=== PATIENT | female | born 1960 | race Caucasian/White ===

== ENCOUNTER 2017-11-28 11:09 | Inpatient (IN) | payer BC ==
[~2017-11-28] VITALS: Ht 167.6 cm; Wt 187.3 kg
[2017-11-28 12:11] LABS: BASOPHIL % 0.2 % (0-2); PLATELET COUNT 336 x10^3mcL (130-400)
[2017-11-28 12:34] LABS: microscopic required? YES; urine erythrocyte TRACE (NEGATIVE)
[2017-11-28 12:45] LABS: CARBON DIOXIDE 29.6 mmol/L (21-32); CHLORIDE SERUM 104 mmol/L (98-107); GLUCOSE SERUM 102 mg/dL (74-106); POTASSIUM SERUM 3.9 mmol/L (3.5-5.1); SODIUM SERUM 141 mmol/L (136-145)
[2017-11-28 12:46] LABS: ALBUMIN 2.3 g/dL (3.4-5.0); ALKALINE PHOSPHATASE 64 U/L (46-116); ALT/SGPT 36 U/L (14-59); AST/SGOT 48 U/L (15-37); BILIRUBIN TOTAL 0.7 mg/dL (0.20-1.00); CALCIUM 8.6 mg/dL (8.5-10.1); CREATININE SERUM 0.8 mg/dL (0.6-1.0); GFR1 > 60 mL/min
[2017-11-28] MEDS ORDERED: METFORMIN HCL1000 MG PO (15:48)
[2017-11-28 16:05] LABS: AMPHETAMINE QUAL UR NONE DETECTED (NEG <=1000)
[2017-11-28 16:05] LABS: MAGNESIUM 1.9 mg/dL (1.8-2.4); PHOSPHOROUS 3.5 mg/dL (2.5-4.9)
[2017-11-28 16:07] LABS: CHOLESTEROL/HDL RATIO 5.7
[2017-11-28 16:26] VITALS: BP 113/63
[2017-11-28 16:30] VITALS: Ht 167.6 cm; Wt 187.3 kg
[2017-11-28 20:35] VITALS: BP 135/65
[2017-11-29 05:55] VITALS: BP 124/67
[2017-11-29 07:58] LABS: BASOPHIL % 0.3 % (0-2); PLATELET COUNT 298 x10^3mcL (130-400)
[2017-11-29 08:48] VITALS: BP 123/63
[2017-11-29 12:17] LABS: CALCIUM 8.2 mg/dL (8.5-10.1); CARBON DIOXIDE 30.8 mmol/L (21-32); CHLORIDE SERUM 107 mmol/L (98-107); CREATININE SERUM 0.7 mg/dL (0.6-1.0); GFR1 > 60 mL/min; GLUCOSE SERUM 98 mg/dL (74-106); SODIUM SERUM 146 mmol/L (136-145)
[2017-11-29 13:16] VITALS: BP 113/70
[2017-11-29 16:18] VITALS: BP 118/73
[2017-11-29 20:20] VITALS: BP 101/51
[2017-11-30 05:29] VITALS: BP 95/53
[2017-11-30 07:09] LABS: BASOPHIL % 0.3 % (0-2); PLATELET COUNT 300 x10^3mcL (130-400)
[2017-11-30 07:44] LABS: CARBON DIOXIDE 31.8 mmol/L (21-32); CHLORIDE SERUM 108 mmol/L (98-107); POTASSIUM SERUM 3.5 mmol/L (3.5-5.1); SODIUM SERUM 141 mmol/L (136-145)
[2017-11-30 07:45] LABS: CALCIUM 7.7 mg/dL (8.5-10.1); CREATININE SERUM 0.7 mg/dL (0.6-1.0); GFR1 > 60 mL/min; GLUCOSE SERUM 97 mg/dL (74-106)
[2017-11-30 08:59] VITALS: BP 116/63
[2017-11-30 13:15] VITALS: BP 132/77
[2017-11-30 18:32] VITALS: BP 124/64
[2017-11-30 21:02] VITALS: BP 105/52
[2017-12-01 04:44] VITALS: BP 117/69
[2017-12-01 08:01] LABS: CALCIUM 7.8 mg/dL (8.5-10.1); CARBON DIOXIDE 31.2 mmol/L (21-32); CHLORIDE SERUM 105 mmol/L (98-107); CREATININE SERUM 0.6 mg/dL (0.6-1.0); GFR1 > 60 mL/min; GLUCOSE SERUM 100 mg/dL (74-106); POTASSIUM SERUM 3.4 mmol/L (3.5-5.1); SODIUM SERUM 143 mmol/L (136-145)
[2017-12-01 08:15] LABS: BASOPHIL % 0.3 % (0-2); PLATELET COUNT 325 x10^3mcL (130-400); RED CELL DISTRIBUTION WIDTH 14.8 % (11.5-14.5)
[2017-12-01 09:24] VITALS: BP 132/71
[2017-12-01 16:15] VITALS: BP 129/74
[2017-12-01 21:40] VITALS: BP 110/56
[2017-12-02 06:19] VITALS: BP 109/58
[2017-12-02 07:19] LABS: BASOPHIL % 0.2 % (0-2); PLATELET COUNT 333 x10^3mcL (130-400)
[2017-12-02 07:24] LABS: RED CELL DISTRIBUTION WIDTH 15.4 % (11.5-14.5)
[2017-12-02 07:38] LABS: CARBON DIOXIDE 29.3 mmol/L (21-32); CHLORIDE SERUM 107 mmol/L (98-107); CREATININE SERUM 0.6 mg/dL (0.6-1.0); GFR1 > 60 mL/min; GLUCOSE SERUM 103 mg/dL (74-106); POTASSIUM SERUM 3.8 mmol/L (3.5-5.1); SODIUM SERUM 145 mmol/L (136-145)
[2017-12-02 08:43] VITALS: BP 111/63
[2017-12-02 17:34] VITALS: BP 102/56
[2017-12-02 20:41] VITALS: BP 115/59
[2017-12-03 05:57] VITALS: BP 118/73
[2017-12-03 08:39] VITALS: BP 128/66
[2017-12-03 17:10] VITALS: BP 120/69
[2017-12-03 20:43] VITALS: BP 110/62
[2017-12-04 05:57] VITALS: BP 103/56
[2017-12-04 08:31] VITALS: BP 115/66
[2017-12-04 16:10] VITALS: BP 100/62
[2017-12-04] MEDS ORDERED: VITC PO (18:45)
[2017-12-04] MEDS ORDERED: THERAGRAN-M1 TA4 PO (18:45)
[2017-12-04] MEDS ORDERED: LAC PO (18:46)
[2017-12-04] MEDS ORDERED: ZINC SULFATE220 MG PO (18:46)
[2017-12-04] MEDS ORDERED: LEVAQUIN750 MG PO (18:47)
[2017-12-04 22:01] VITALS: BP 122/67
== END 2017-12-04 23:35 | DRG 264 ==
LOC: ED 11:09 → DU 13:07 → MU 13:07 → DU 15:57 → MU 11-29 12:09
PROVIDERS: Emergency Medicine; Family Medicine; Surgery
PROC: 0JBM0ZZ Excision of Left Upper Leg Subcutaneous Tissue and Fascia, Open Approach (ICD-10-PCS; principal; 2017-11-30 16:00)
DX: E11.52 Type 2 diabetes mellitus with diabetic peripheral angiopathy with gangrene (principal); L89.893 Pressure ulcer of other site, stage 3; E43 Unspecified severe protein-calorie malnutrition; R53.2 Functional quadriplegia; I96 Gangrene, not elsewhere classified; L03.116 Cellulitis of left lower limb; N39.0 Urinary tract infection, site not specified; L97.528 Non-pressure chronic ulcer of other part of left foot with other specified severity; F23 Brief psychotic disorder; Z68.44 Body mass index [BMI] 60.0-69.9, adult; F41.1 Generalized anxiety disorder; E86.0 Dehydration; E66.01 Morbid (severe) obesity due to excess calories; F40.00 Agoraphobia, unspecified; I89.0 Lymphedema, not elsewhere classified; E11.65 Type 2 diabetes mellitus with hyperglycemia; I87.8 Other specified disorders of veins; R23.8 Other skin changes; E28.2 Polycystic ovarian syndrome; E11.621 Type 2 diabetes mellitus with foot ulcer; L97.519 Non-pressure chronic ulcer of other part of right foot with unspecified severity; D64.9 Anemia, unspecified; L89.151 Pressure ulcer of sacral region, stage 1; F42.3 Hoarding disorder; Z79.84 Long term (current) use of oral hypoglycemic drugs; Z88.2 Allergy status to sulfonamides; Z86.718 Personal history of other venous thrombosis and embolism
CPT/HCPCS: 82962; 94150; 97110-GP; 97116-GP; 97530-GP; 97535-GP; J0696; J1644; J1956; J2175; J2250; J2704; J3010; J3490; J7030; Q0092

== ENCOUNTER 2019-07-05 08:06 | Inpatient (IN) | payer BC ==
[~2019-07-05] VITALS: Ht 167.6 cm; Wt 165.1 kg
[~2019-07-05 08:06] MED LIST: LAC PO; LEVAQUIN750 MG PO; METFORMIN HCL1000 MG PO; THERAGRAN-M1 TA4 PO; VITC PO; ZINC SULFATE220 MG PO
[2019-07-05 08:29] VITALS: Ht 167.6 cm; Wt 165.1 kg
--- NOTE | 2019-07-05 09:54 | NUR ---
PATIENT ASSISTED WITH PERICARE. MODERATE AMOUNT OF DRIED FECES NOTED ON BODY SECONDARY TO INABILITY TO GET UP FROM FLOOR. PER EMS, PATIENT SLEEPS ON COUCH DUE TO EXCESSIVE HOARDING IN HOME. REPORTS HOME IN SEVERE DISARRAY.
[2019-07-05 10:13] LABS: CALCIUM 8.6 mg/dL (8.5-10.1); CARBON DIOXIDE 26.3 mmol/L (21-32); CHLORIDE SERUM 104 mmol/L (98-107); CREATININE SERUM 0.7 mg/dL (0.6-1.0); GFR1 > 60 mL/min; GLUCOSE SERUM 109 mg/dL (74-106); SODIUM SERUM 139 mmol/L (136-145)
[2019-07-05 10:14] LABS: BASOPHIL % 0.6 % (0-2); PLATELET COUNT 329 x10^3mcL (130-400)
[2019-07-05 10:17] LABS: RED CELL DISTRIBUTION WIDTH 14.9 % (11.5-14.5)
[2019-07-05 10:18] LABS: ALKALINE PHOSPHATASE 70 U/L (46-116); ALT/SGPT 27 U/L (14-59); AST/SGOT 40 U/L (15-37); BILIRUBIN TOTAL 0.51 mg/dL (0.20-1.00); TOTAL PROTEIN, SERUM 7.9 g/dL (6.4-8.2)
[2019-07-05 10:25] LABS: ALBUMIN 2.7 g/dL (3.4-5.0)
[2019-07-05 10:26] LABS: POTASSIUM SERUM 4.3 mmol/L (3.5-5.1)
--- NOTE | 2019-07-05 11:59 | NUR ---
ADMITTING MD AT BEDSIDE WITH EVALUATION AND ADMIT ORDERS. WILL ORDER WOUND CONSULT UPON ADMISSION TO FLOOR.
[2019-07-05 12:15] LABS: microscopic required? YES; urine erythrocyte TRACE (NEGATIVE)
[2019-07-05 12:33] LABS: MAGNESIUM 2.1 mg/dL (1.8-2.4); PHOSPHOROUS 3.6 mg/dL (2.5-4.9)
[2019-07-05 12:38] LABS: AMPHETAMINE QUAL UR NONE DETECTED (See below)
[2019-07-05 13:41] VITALS: BP 108/59
--- NOTE | 2019-07-05 14:59 | NUR ---
RECEIVED PT FROM ER, PT ADMIT FOR GENERALIZED WEAKNESS, CELLULITIS, PT IS A/O X4, VERBAL RESPONSIVE. LUNG SOUND CLEAR BILATERAL, NO COUGH, NO SOB. PT DENY CHEST PAIN DISCOMFORT, BOWEL SOUND PRESENT ALL 4 QUADRANTS, NO DISTENTION, NO TENDER. BLE LYMPHEDEMA. DISCOLORATION AT BEATRICE LEG. THERE IS MULTIPLE SKIN TEAR AT RIGHT THIGH. THERE ARE ERYTHEMA UNDER BEATRICE BREAST AND ABD FOLD. IV AT LEFT AC, NO LEAKING, NO INFILTRATION. ALL ADLS ASSIST, ALL NEED MET, CALL LIGHT IN REACH, WILL CONTINUE TO MONITOR.
[2019-07-05 16:32] VITALS: BP 100/48
--- NOTE | 2019-07-05 17:30 | NUR ---
IV ABX GIVEN, INFUSING TO LAC. PATIENT C/O PAIN 10/05 TO BLE, PATIENT STATES PAIN IS TOLERABLE, INCREASES WITH MOVEMENT. NO ACUTE DISTRESS NOTED, PATIENT DENIES SOB, ON ROOM AIR. CARDENAS CATH DRAINING TO GRAVITY. ALL NEEDS METS AT THIS TIME. CALL LIGHT WITHIN REACH, WILL CONITNUE TO MONITOR.
--- NOTE | 2019-07-05 18:25 | NUR ---
PROVIDED WOUND CARE TO BILATERAL LOWER EXTREMITIES, CLEANSE WITH NS AND APPLIED DRIED DRESSING. INTERDRY APPLIED ON ABDOMINAL AND BREAST FOLDS. NO ACUTE CHANGES NOTED THOUGHOUT SHIFT, PATIENT IS STABLE. CALL LIGHT WITHIN REACH, BED IN LOW POSITION. WILL ENDORSE REPORT TO NIGHT RN.
--- NOTE | 2019-07-05 19:30 | NUR ---
PT IS A/O X4. MED SURG. DENIES ANY CHEST PAIN OR PRESSURE. PULSES ARE PRESENT. EDEMA NOTED ON BLE. LUNGS CLEAR IN ALL DAILEY. ON RA, DENIES ANY RESP DISTRESS. EQUAL CHEST RISE AND FALL. NO SIGN OF RESP DISTRESS. BOWEL SOUNDS ARE PRESENT X4. ABD SOFT AND OBESED. CARDENAS BAG IN PLACE, DRAINING VIA GRAVITY. BAG BELOW THE BLADDER. NO DEPENDENT LOOP OR KINK NOTED IN TUBING. R THIGH HAS MULTILPE, SUPERFICIAL SKIN TEARS, DRESSING INTACT AND CLEAN. BLE SKIN DISCOLORATION NOTED. ERYTHEMIC SKIN NOTED ON ABD FOLDS AND UNDER BREAST, INTRA-DRY IN PLACE. DENIES ANY PAIN AT THIS TIME. IV ON LAC INTACT AND PATENT. BED IS AT LOWEST SETTING. CALL LIGHT WITHIN REACH. WILL CONTINUE TO MONTIOR PT.
[2019-07-05 21:11] VITALS: BP 124/58
--- NOTE | 2019-07-05 23:23 | NUR ---
REPORT GIVEN TO REGI FLOR. ENDORSED ALL CARE.
--- NOTE | 2019-07-05 23:45 | NUR ---
EYS CLOSED, NO FACIAL GRIMACING NOTED. RESPIRATIONE FRITZ AND UNLABORED. NO S/S OF ACUTE DSITRESS.
--- NOTE | 2019-07-06 05:33 | NUR ---
CONTINUES ON ATB IVPB FOR EMPIRIC MANAGEMETN OF CELLULITIS , NO ADVERSE REACTION NOTED. BED IN LOWEST POSITION FOR SAFETY.
[2019-07-06 05:59] VITALS: BP 95/45
[2019-07-06 06:21] LABS: BASOPHIL % 0.6 % (0-2); PLATELET COUNT 296 x10^3mcL (130-400)
[2019-07-06 06:29] LABS: RED CELL DISTRIBUTION WIDTH 15.1 % (11.5-14.5)
[2019-07-06 06:39] LABS: CALCIUM 8.4 mg/dL (8.5-10.1); CARBON DIOXIDE 25.9 mmol/L (21-32); CHLORIDE SERUM 109 mmol/L (98-107); CREATININE SERUM 0.7 mg/dL (0.6-1.0); GFR1 > 60 mL/min; GLUCOSE SERUM 95 mg/dL (74-106); SODIUM SERUM 142 mmol/L (136-145)
--- NOTE | 2019-07-06 07:58 | NUR ---
REPORT TAKEN FROM LEADERSHIP DEVELOPMENT INSTRUCTOR NURSE AT THE BEDSIDE, PATIENT ALERT AND ORIENTED X 4 DURING REPORT, ABLE TO MAKE NEEDS KNOWN, IV TO LEFT AC WITH NS RUNNING AT 100ML/H. PATIENT DENIED ACUTE PAIN A THIS TIME, WILL CONTINUE TO MONITOR
[2019-07-06 08:43] VITALS: BP 116/41
[2019-07-06 12:32] VITALS: BP 125/49
[2019-07-06 17:02] VITALS: BP 111/59
--- NOTE | 2019-07-06 19:05 | NUR ---
CARE ASSUMED FROM OUTGOING RN. PT RESTING COMFORTABLY IN BED. NO ACUTE DISTRESS NOTED. EVEN AND UNLABORED RESPIRATIONS ON RA. MEDSURG PT. IV PATENT AND INTACT RUNNING FLUIDS PER EMAR. CARDENAS PATENT DRAINING YELLOW URINE VIA GRAVITY. NO C/O PAIN AT THIS TIME. BED IN LOWEST POSITION. SIDE RAILS UPX2. CALL LIGHT WITHIN REACH. WILL CONTINUE TO MONITOR.
[2019-07-06 21:08] VITALS: BP 98/48
[2019-07-06 21:35] VITALS: BP 100/49
--- NOTE | 2019-07-07 00:45 | NUR ---
PT RESTING COMFORTABLY IN BED WITH EYES CLOSED. NO ACUTE DISTRESS NOTED. EVEN AND UNLABORED RESPIRATIONS ON RA. IV PATENT AND INTACT RUNNING FLUIDS PER EMAR. CARDENAS DRAINING YELLOW URINE VIA GRAVITY. BED IN LOWEST POSITION. SIDE RAILS UPX2. CALL LIGHT WITHIN REACH. WILL CONTINUE TO MONITOR.
[2019-07-07 04:23] VITALS: BP 129/55
--- NOTE | 2019-07-07 05:59 | NUR ---
C/O PAIN TO IV SITE, REDNESS NOTED. DC'ED IV, CATHETER INTACT, PRESSURE APPLIED, NO EXCESS BLEEDING NOTED. NEW IV STARTED TO RIGHT HAND, GOOD BLOOD RETURN, FLUSHING WELL, RUNNING ANTIBIOTICS AND FLUIDS. PT TOLERATED WELL. NO ACUTE DISTRESS NOTED. BED IN LOWEST POSITION. SIDE RAILS UPX2. CALL LIGHT WITHIN REACH. WILL CONTINUE TO MONITOR.
--- NOTE | 2019-07-07 06:54 | NUR ---
PT SLEPT IN INTERVALS THROUGHOUT THE SHIFT. ALL NEEDS TENDED TO AND MET. ALL SCHEDULED MEDICATIONS GIVEN. OPTIFOAM REPLACED TO RIGHT POSTERIOR THIGH, CDI. INTERDRY APPLIED BENEATH BREASTS AND ABD FOLDS. PT CLEANED, GOWN AND LINEN CHANGED. PT TOLERATED WELL. CARDENAS PATENT. BED IN LOWEST POSITION. SIDE RAILS UPX2. CALL LIGHT WITHIN REACH. WILL ENDORSE TO ONCOMING SHIFT.
--- NOTE | 2019-07-07 07:05 | NUR ---
RECEIVED PT FROM NIGHT NURSE. PT IS SITTING UP IN BED. PT LOOKS TO BE IN NO ACUTE DISTRESS AT THIS TIME AND DENIES ANY PAIN. RESPIRATIONS EVEN AND UNLABORED ON ROOM AIR. IV SITE PATENT WITH NO SIGNS OF ERYTHEMA OR SWELLING. CARDENAS CATHETER PRESENT. SWELLING NOTED TO BLE. CALL LIGHT WITHIN REACH. WILL CONTINUE TO MONITOR.
--- NOTE | 2019-07-07 08:45 | NUR ---
WOUND CARE NURSE NIKITA AT BEDSIDE. PT LOOKS TO BE IN NO ACUTE DISTRESS AT THIS TIME. NEW DRESSINGS TO RIGHT BUTTOCK AND LEFT UPPER THIGH IS CDI. DRYNESS AND SWELLING NOTED TO BLE. WILL CONTINUE TO MONITOR.
[2019-07-07 09:45] VITALS: BP 115/50
--- NOTE | 2019-07-07 11:50 | NUR ---
PT IS LAYING DOWN IN BED RESTING WITH EYES CLOSED. PT EASILY AROUSABLE. ASSISTED PT TO TURN AND REPOSITION. PT IS NOW SITTING UP IN BED WATCHING TV. MADE PT COMFORTABLE IN BED. CALL LIGHT WITHIN REACH. WILL CONITNUE TO MONITOR.
--- NOTE | 2019-07-07 12:17 | NUR ---
WOUND CARE EVALUATION NOTE: REASON FOR EVALUATION: MULTIPLE WOUNDS SKIN ASSESSMENT DONE WITH PRIMARY RN WITH THIS 59 Y/O FEMALE PT ADMITTED FROM HOME TO [facility] WITH INITIAL DX OF GENERAL WEAKNESS. PAST MEDICAL HX INCLUDES LLE DVT. BLE LYMPHODEMA, DM II, MORBID OBESITY AND PCOS. PT IS AWAKE, ALERT X4. PER PT. SHE SIT AND SLEEP IN HER CHAIR, ABLE TO AMBULATE TO BR WITH FWW AT HOME. SKIN IS WARM AND DRY, BLE NO HAIR GROWTH, DORSAL PEDAL PULSES DIFFICULT TO PALPATE DUE TO +2 EDEMA, CAPILLARY REFILLED < 3 SEC. X [address]ES[address] F/C IN [address]ACE, CLOUDY COLOR WITH MODERATE AMOUNT URINE OUTPUT OBSERVED. PLAN OF CARE DISCUSSED WITH PRIMARY RN AND PT. AND PT VERBALIZES UNDERSTANDING. INTEGUMENTARY: -INTERTRIGO R/L UNDER BREAST FOLDS AND LOWER ABDOMENAL FOLDS,REDNES,INTACT -MOISTURE ASSOCIATE DERMATITIS (MAD) TO: B/L GROINS EXTENDED TO R/L MEDIAL THIGHS, REDNESS, SKIN INTACT. -MAD SKIN EROSIONS RIGHT POSTERIOR THIGH WITH MULTIPLE PARTIAL THICKNESS SKIN EROSIONS WITH LARGEST SIZE AT RIGHT ISCHIUM [id number] CM, WOUND BED IS PINK, SURROUNDING REDNESS DIFUSSED TO ENTIRE RIGHT INNER THIGHS, WOUND BED 100% GRANULATION TISSUE, MOIST AND NO ODOR. MIGUEL WOUIND SKIN INTACT. -IAD TO PERINEUM TO PERIANAL REDNESS, SKIN INTACT. -OLD HEALED SCARS FROM POSTERIOR LEFT THIGH DIFUSSED TO LEFT LOWER BUTTOCK. -BILATERAL LOWER LEGS CHRONIC LYMPHODEMA WITH ELEPHANTIASIS MULTIPLE HEALED ULCERATIONS SCARS XEROSIS WITH DRY PEELING SCALLY SKIN TO ENTIRE LEGS TO FEET. -THIN CALLUS TO HEELS, SKIN INTACT. RECOMMENDATIONS: -CLEANSE RIGHT POSTERIOR THIGH WITH WOUND CARE SOLUTION, PAT DRY, APPLY HYDROCOLLOIDS DRESSING AND SECURE WITH ISLAND DRESSING 3X WEEK ON SATURDAY-SATURDAY AND SATURDAY AND PRN IF SOILING -COVER LEFT MEDIAL THIGH SKIN TAG WITH OPTIFOAM CHANGE Q5 DAYS AND PRN IF SOILING -APPLY HYDRAGUARD TO BLE/FEET 3X A DAY -APPLY INTER DRY CLOTH TO UNDER BREASTS FOLDS AND LOAWER ABDOMENAL FOLDS QD AND CHANGE CLOTH Q7 DAYS AND PRN IF SOILING. -CLEANSE GROINS, MEDIAL THIGHS, PERINENM AND PERIANAL WITH SOAP AND WATER, PAT DRY AND APPLY HYDRAGUARD, BID AND PRN IF SOILING. -APPLY OPTIFORM TO L POSTERIOR THIGH AND CHANGE Q5D AND PRN IF DISLOGGED -OFFLOAD BILATERAL HEELS BY PLACING PILLOWS UNDER CALVES UNLESS OTHERWISE CONTRAINDICATED -PRESSURE REDISTUBUTION SURFACE THERAPY -TURN AND REPOSITION Q2H, OFFLOAD SACRALCOCCYX BY TURNING RIGHT AND LEFT -MONITOR SKIN CONDITION EACH TIME PT IS REPOSITIONS -CONTINUE TO FOLLOW UP OUT PATIENT VASCULAR FOR LYMPHEDEMA BILATERAL LOWER EXTREMITIES -HOME HEALTH OR SNF FOR CONTINUE WOUND CARE UPON DISCHARGE -CONTINUE TO FOLLOW RD RECOMMENDATIONS PLEASE CONTACT WOUND CARE NURSE FOR ANY QUESTION AND CHANGE OF WOUND CONDITION.
--- NOTE | 2019-07-07 14:13 | NUR ---
PT IS LAYING DOWN IN BED WATCHING TV. PT LOOKS TO BE IN NO ACUTE DISTRESS AT THIS TIME AND DENIES ANY PAIN. RESPIRATIONS EVEN AND UNLABORED ON ROOM AIR. ASSISTED PT TO TURN AND REPOSITION AND MADE PT COMFORTABLE IN BED. CALL LIGHT WITHIN REACH. WILL CONTINUE TO MONITOR.
--- NOTE | 2019-07-07 17:00 | NUR ---
PT IS SITTING UP IN BED WITH HOB UP. PT LOOKS TO BE IN NO ACUTE DISTRESS AT THIS TIME AND DENIES ANY PAIN. ASSISTED PT TO REPOSITION. RESPIRATIONS EVEN AND UNLABORED ON ROOM AIR. SWELLING NOTED TO BLE. MADE PT COMFORTABLE IN BED. WILL CONTINUE TO MONITOR.
[2019-07-07 17:09] VITALS: BP 113/58
--- NOTE | 2019-07-07 18:46 | NUR ---
ASSISTED PT FROM BED TO BSC WITH FWW. PT SLOWLY ABLE TO GET TO BSC WITH ASSISTANCE. PT HAD A BOWEL MOVEMENT. CLEANED UP PT AND ASSISTED BACK TO THE BED. PHYSICAL THERAPY NOW AT BEDSIDE WORKING WITH PT. PT LOOKS TO BE IN NO ACUTE DISTRESS AT THIS TIME. RESPIRATIONS EVEN AND UNLABORED ON ROOM AIR. IV SITE PATENT WITH NO SIGNS OF ERYTHEMA OR SWELLING WITH IV FLUIDS INFUSING. CALL LIGHT WITHIN REACH. WILL ENDORSE TO ONCOMING SHIFT.
--- NOTE | 2019-07-07 19:25 | NUR ---
REC'D REPORT FROM RUDY DELUNA TO ASSUME CARE. PT A/0 X4, SPEECH CLEAR AND APPRORPRIATE. EENT FREE OF DISCHARGE. RESPS E/U ON ROOM AIR. CHEST RISE EQUAL AND SYMMETRICAL. DENIES ANY CP, SYNCOPE, OR DIZZINESS. PULSES PALPABLE X4. CAP REFILL < 3 SECS. BLE NON-PITTING LYMPHEDEMA NOTED. IV TO RHAND G22 INTACT AND PATENT. IVF NS INFUSING @ 100 ML/HR. GEN WEAKNESS NOTED. PT OBESE, REQUIRES ASSISTANCE FOR BED MOBILITY. TURNED AND REPOSITIONED Q2H FOR PRESSURE RELIEF. ABD OBESE, SOFT, NONTENDER TO TOUCH. BOWEL SOUNDS ACTIVE. DENIES ANY N/V/D. F/C INTACT AND PATENT, DRAINING VIA GRAVITY YELLOW URINE. CALM ADAM COOPERATIVE. ALL NEEDS MET AT THIS TIME. ENCOURAGED TO CALL FOR ANY ASSISTANCE WITH CALL LIGHT. CALL LIGHT WITHIN REACH. WILL CONTINUE TO MONITOR.
[2019-07-07 19:46] VITALS: BP 106/40
--- NOTE | 2019-07-07 22:30 | NUR ---
PT SEEN SITTING UP IN BED WATCHING TV. DENIES ANY PAIN OR DISCOMFORT. WILL CONTINUE TO MONITOR.
--- NOTE | 2019-07-08 00:53 | NUR ---
PT SEEN AWAKE LYING IN BED WATCHING TV. NO SIGNS OF DISTRESS NOTED. DENIES ANY PAIN OR DISCOMFORT.
[2019-07-08 05:26] VITALS: BP 120/61
[2019-07-08 06:31] LABS: CALCIUM 8.3 mg/dL (8.5-10.1); CARBON DIOXIDE 29.4 mmol/L (21-32); CHLORIDE SERUM 106 mmol/L (98-107); CREATININE SERUM 0.7 mg/dL (0.6-1.0); GFR1 > 60 mL/min; GLUCOSE SERUM 97 mg/dL (74-106); POTASSIUM SERUM 5.1 mmol/L (3.5-5.1); SODIUM SERUM 142 mmol/L (136-145)
[2019-07-08 06:45] LABS: BASOPHIL % 0.4 % (0-2); PLATELET COUNT 335 x10^3mcL (130-400); RED CELL DISTRIBUTION WIDTH 15.1 % (11.5-14.5)
--- NOTE | 2019-07-08 07:00 | NUR ---
RECEIVED REPORT FROM DEYSI DELUNA AT BEDSIDE, PT RESTING IN BED IN NO ACUTE DISTRESS
[2019-07-08 08:38] VITALS: BP 124/64
--- NOTE | 2019-07-08 09:10 | NUR ---
AM MEDs GIVEN PER MD ORDER VIA EMAR, TOLERATED WELL, NO ASE NOTED AT THIS ITME, EDUCATED PT R/T MED, ASE AND MONITOR, VERBALLY UNDERSTANDING, ALL NEEDS ADDRESSED AT THIS TIME, SAFETY PROTOCOL FOLLOWED, CONTINUE TO MONITOR
--- NOTE | 2019-07-08 09:29 | NUR ---
PT RESTING IN BED, IN NO ACUTE DISTRESS, VERBAL, ABLE TO MAKE NEEDS KNOWN, NO FACIAL DROOP/SLURRED SPEECH, RESP EVEN, RA, MEDSURYesi, SEE SHIFT ASSESSMENT, DENIED PAIN/DISCOMFORT, DENIED CP/PALPITATION, DENIED SOB/COUGH, IV PATENT AND FLUSING WELL, DRESING, CDI, ALL NEEDS ADDRESSED AT THIS TIME, SAFETY PROTOCOL FOLLOWED, CONTINUE TO MONITOR
--- NOTE | 2019-07-08 09:58 | NUR ---
SEEN BY ROBINA ARRIOLAO, QUESTIONS ASKED AND ANSWERED, NO FUIRTHER CONCERN NEEDE WHEN ASKED, ALL NEEDS ADDRESSED AT THIS TIME, SAFETY PROTOCOL FOLLOWED, CONTINUE TO MONITOR
[2019-07-08 11:03] VITALS: BP 124/64
--- NOTE | 2019-07-08 13:52 | NUR ---
1. [facility].
--- NOTE | 2019-07-08 13:52 | NUR ---
Initial Nutrition Assessment: 239/B [facility] [place] HR Dx: general weakness PMHx: PCOS, DVT in 1997 PSHx: Other (IVC filter placed in 1997), I&D done on Lt buttock and thigh in 2017 Labs: ALB 2.7L, CA 8.3L, AST 40H, HGB 10.7L Meds: Colace, lactinex, norco, NS, theragran-M, vitamin C, zinc, Zofran, zosyn Diet: [facility] PO intake since admission: (07/07) dinner 90%, lunch 80%, breakfast 100% Ht: 167.64 cm (66") Wt: 165 kg (363#) BMI: 58.8 kg/m2 Bed scale: 165 kg IBW: 142# (65 kg) %IBW: 255 UBW: 363# Age: 59/F Food Allergies: NKFA Skin: multiple skin tear at R posterior site, BEATRICE leg discoloration, BEATRICE breast folds erythema, [place]: 15 Edema: BLE lympedema GI: Last BM: 07/07 Trigger: unintentional wt loss, poor PO >3d Per H&P, Pt is a 59 yoF with PMH of PCOS and a DVT in 1997, s/p coumadin for 6 months and IVC filter, who came with cc of generalized weakness in the last [address] Note (07/08): Patient was alert and oriented and said that she ate almost all of her breakfast this morning and has good appetite. Patient was also very receptive to diet education. Problem with: N/V/D/C: none Problems with: Chewing: Swallowing: none Current appetite: good Recent wt change: none %wt change: n/a Vitamin/Supplement use: over 50, vitamin D, magnesium, zinc, fish oil Special diet at home: Regular, avoids sugary foods Physical activity: sedentary d/t physical condition Nutrition education given: Diet education and counseling about healthy eating, portion control and label reading was provided. Food-drug interactions: none Education given: n/a Estimated Nutritional Needs Based on adjusted body weight (90 kg) Energy: 9475-7509 kcal/day (25-30 kcal/kg for maintenance) Protein: 90-108 g/day (1.0-1.2 g/kg for maintenance) Fluid: 4154-6181 mL/day (1 mL/kcal) Nutrition Diagnosis: 1. Morbid obesity related to increased PO and limited physical activity as evidenced by BMI 58.8 kg/m2 Intervention 1. Recommend continuing [facility] diet at this time. Monitor/Evaluate Goal: PO intake at least 75% of estimated needs Monitor: PO intake, Labs, GI function F/U in 7 days as low risk 07/15
--- NOTE | 2019-07-08 16:16 | NUR ---
WOUND DRESSING CHANGED, PICs TAKEN AND KEPT IN CHART, PT RESTING IN BED IN NO ACUTE DISRESS, SKIN C/D/W, ALL NEEDS ADDRESSED, SAFETY PROTOCOL FOLLOWED, CONTINUE TO MONITOR
[2019-07-08 16:54] VITALS: BP 118/72
--- NOTE | 2019-07-08 17:25 | NUR ---
PT RESTING IN BED, IN NO ACUTE DISTRESS, IV PATENT AND INFUSING WELL. BM X 1, SKIN C/D/W, DRESSING CDI, DENIED CP/PALPITATION, DENIED PAIN/DISCOMFORT, NO SOB/COUGH, ALL NEEDS ADDRESSED AT THIS TIME, SAFETY PROTOCOL FOLLOWED, COMFORT PROVIDED, WILL ENDORSE TO ONCOMING RN
--- NOTE | 2019-07-08 19:30 | NUR ---
Received pt. from day shift, currently resting in bed asleep, but easily arousable with verbal stimuli. Pt. has no c/o of SOB, chest pain, pain, n/v or h/a, or s/o distress. Pt. safety in check with call light placed within, educated pt. on when and how to use call light system, bed set at lowest position, will continue to monitor pt. at this time.
[2019-07-08 20:45] VITALS: BP 124/60
--- NOTE | 2019-07-09 00:16 | NUR ---
IV SITE ON THE RIGHT HAND WAS NOT INFUSING, NEW IV SITE 20 G ON R AC, INFUSING WELL AT THIS TIME.
--- NOTE | 2019-07-09 05:44 | NUR ---
Pt. dressing on lower back region was changed d/t being soiled. Pt. toleraeted procedure well, dressing applied as wound care ordered. Will continue to monitor pt. at this time.
[2019-07-09 06:10] VITALS: BP 123/70
--- NOTE | 2019-07-09 06:52 | NUR ---
Pt. asleep for most of the night, was able to do a dressing change d/t dressing being soiled of fecal matter. Dressing changed and pt. tolerated it well. Pt. had no c/o of chest pain, pain, h/a, or s/o distress at this time. Will continue to monitor pt. at this time and endorse to next shift RN.
--- NOTE | 2019-07-09 07:10 | NUR ---
RECIEVED PT RESTING BED WITH NO C/O PAIN OR DISTRESS. A/O X4 WITH NO URBINA OR DIZZINESS. LUNGS CTAB. CARDENAS CATHETER IN PLACE AND DRAINING YELLOW URINE. NS 100ML/HR RUNNING IN RAC, CDI AND PATENT. SAFETY PRECAUTIONS IN PLACE, CALL LIGHT WITHIN REACH, WILL MONITOR.
[2019-07-09 09:12] VITALS: BP 134/61
--- NOTE | 2019-07-09 11:00 | NUR ---
PT STABLE WITH NO C/O PAIN OR DISTRESS. SAFETY PRECAUTIONS IN PLACE, CALL LIGHT WITHIN REACH, WILL CONTINUE TO MONITOR.
[2019-07-09 13:43] VITALS: BP 134/61
--- NOTE | 2019-07-09 14:34 | NUR ---
PHYSICAL THERAPY DAILY NOTES CO-SIGN All documentation done by the Clinical Nutritionist for 07/09/19 has been reviewed. I agree with the documentation. Reviewed/Co-Signed by: Heather Rene PT Documentation Done by:CUATE JACKSON PTA
--- NOTE | 2019-07-09 15:57 | NUR ---
DO NOT D/C IV OR CARDENAS CATHETER UPON TRANSFER, PER DR DURON. CHARGE MADE AWARE.
--- NOTE | 2019-07-09 16:07 | NUR ---
CALLED TO GIVE REPORT TO [facility] AND SPOKE TO LEONARD CHARGE NURSE AND SHE NOTIFIED ME THAT THEY ARE STILL WAITING FOR [facility] TO DELIVER THE BARIATRIC BED FOR PT. CHARGE NURSE AND MICHAEL IN CASE MGMT MADE AWARE. WILL F/U.
--- NOTE | 2019-07-09 17:47 | NUR ---
ETA FOR PT TRANSPORT IS 2100 PER CHARGE NURSE, PT MADE AWARE.
[2019-07-09 18:00] VITALS: BP 124/62
--- NOTE | 2019-07-09 18:32 | NUR ---
PT STABLE WITH NO C/O PAIN OR DISTRESS. ALL CARES TOLERATED WELL. VS WNL. LUNGS CTAB. CARDENAS CATHETER INTACT AND DRAINING YELLOW URINE. NS 100ML/HR RUNNING IN RAC, CDI AND PATENT. SAFETY PRECAUTIONS IN PLACE, CALL LIGHT WITHIN REACH, ALL NEEDS MET, WILL ENDORSE CARE TO POWER MACHINE OPERATOR.
--- NOTE | 2019-07-09 19:30 | NUR ---
PT IS A/O x4. MED SURG. DENIES ANY CHEST PAIN OR PRESSURE. BLE EDEMA NOTED. PULSES ARE PRESENT. LUNGS CLEAR IN ALL FEILDS. ON RA. BOWEL SOUNDS ARE PRESENT. CARDENAS BAG BELOW THE BLADDER. NO DEPENDENT LOOP NOTED. WEAKNESS NOTED ON BLE. BEDBOUND. DISCOLORATION NOTED ON BLE, REDNESS NOTED ON ABD FOLDS AND BREAST FOLDS. DENIES ANY PAIN. IV ON RAC. SALINE LOCKED. PT IS TO BE TRANSFERED TONIGHT. PT IS AWARE. BED IS AT LOWEST SETTING. CALL LIGHT WITHIN REACH. WILL CONTINUE TO MONITOR.
--- NOTE | 2019-07-09 20:03 | NUR ---
REPORT GIVEN TO LEONARD IN [facility]. ALL QUESTIONS ANSWERED. TRANSPORT AT BEDSIDE.
--- NOTE | 2019-07-09 20:17 | NUR ---
PT LEFT WITH TRANSPORT. PT IN NO DISTRESS. CARDENAS AND IV INTACT. ID WAS REMOVED. ALL BELONGING WITH PT.
== END 2019-07-09 20:21 | DRG 593 ==
LOC: ED 08:06 → MU 11:15 → DU 11:15 → EDBEDREQ 11:36 → DU 13:16 → MU 13:21
PROVIDERS: Emergency Medicine; Internal Medicine; ADMIT Internal Medicine
DX: L97.129 Non-pressure chronic ulcer of left thigh with unspecified severity (principal); L03.317 Cellulitis of buttock; Z68.45 Body mass index [BMI] 70 or greater, adult; E44.0 Moderate protein-calorie malnutrition; N39.0 Urinary tract infection, site not specified; L97.119 Non-pressure chronic ulcer of right thigh with unspecified severity; E66.01 Morbid (severe) obesity due to excess calories; E11.9 Type 2 diabetes mellitus without complications; Z60.2 Problems related to living alone; E86.0 Dehydration; Z88.2 Allergy status to sulfonamides
CPT/HCPCS: 90658; 97110-GP; 97116-GP; 97530-GP; G0378; J2543; J7030; Q0092

== ENCOUNTER 2019-08-13 18:35 | Inpatient (IN) | payer BC ==
[~2019-08-13] VITALS: Ht 167.6 cm; Wt 156.2 kg
--- NOTE | 2019-08-13 18:54 | NUR ---
PT BIBA FOR GENERALIZED WEAKNESS. STS RECEIVED HOME WELLNESS CHECK PHONECALL TODAY AND STS REP STS PT DID NOT FEEL PT WAS SAFE AT HOME. PT STS TODAY "SLID OUT" OF COUCH AND WAS SITTING ON FLOOR X2 HRS. PT STS BIGGEST DIFFICULTY IS WALKING UP FLIGHT OF STAIRS AT HOME. PT STS AMBULATORY AT HOME WITH WALKER. PER MEDIC UPON GETTING PT UP ONTO GURHAVRE, FECES WAS SEEN FALLING FROM PT'S BOTTOM. PT AAO4, RESP E/U, NO ACUTE DISTRESS AT THIS TIME. PT STS LIVES ALONE.
[2019-08-13 19:26] LABS: BASOPHIL % 0.2 % (0-2); PLATELET COUNT 352 x10^3mcL (130-400)
[2019-08-13 19:29] LABS: RED CELL DISTRIBUTION WIDTH 16.1 % (11.5-14.5)
[2019-08-13 19:52] LABS: CARBON DIOXIDE 26.6 mmol/L (21-32); CHLORIDE SERUM 99 mmol/L (98-107); GLUCOSE SERUM 129 mg/dL (74-106); POTASSIUM SERUM 3.5 mmol/L (3.5-5.1); SODIUM SERUM 133 mmol/L (136-145)
[2019-08-13 19:53] LABS: ALBUMIN 2.4 g/dL (3.4-5.0); ALKALINE PHOSPHATASE 87 U/L (46-116); ALT/SGPT 54 U/L (14-59); AST/SGOT 80 U/L (15-37); BILIRUBIN TOTAL 0.6 mg/dL (0.20-1.00); CALCIUM 8.7 mg/dL (8.5-10.1); CREATININE SERUM 1.2 mg/dL (0.6-1.0); GFR1 49 mL/min; TOTAL PROTEIN, SERUM 7.3 g/dL (6.4-8.2)
--- NOTE | 2019-08-13 20:11 | NUR ---
PT GIVEN SANDWICH; HIRA AHMADI MD.
--- NOTE | 2019-08-13 20:37 | NUR ---
RECEIVED TELE ORDERS FROM DR DURON, ADMIT TO TELE, DX: CELLULITIS
--- NOTE | 2019-08-13 21:00 | NUR ---
PHOTOS OF SKIN TAKEN AND PLACED IN CHART.
[2019-08-13 21:05] LABS: UA SPECIFIC GRAVITY 1.015 (1.005-1.035); microscopic required? YES; urine erythrocyte 3+ (NEGATIVE)
--- NOTE | 2019-08-13 21:30 | NUR ---
PT AAO4, RESP E/U, NO DISTRESS.
[2019-08-13 22:27] VITALS: BP 100/48
--- NOTE | 2019-08-13 22:30 | NUR ---
RECEIVED PT FROM ED WITH CC GENERALIZED WEAKNESS. PER PT, SHE "SLID OFF THE COUCH" AND WAS ON THE FLOOR FOR HOURS AT HOME. PT RECEIVED WELLNESS CALL FROM HER HOME HEALTH SERVICE AND WAS TOLD TO CALL 911. PT IS AAOX4. RESP EVEN AND UNLABORED ON RA. DRY COUGH. ST ON TELE #11, DENIES CP OR PRESSURE. PT IS OBESE. BOWEL SOUNDS ACTIVE, ABDOMEN SOFT, NON-TENDER. LAST BM 08/13/19. VOIDING FREELY. IV TO RAC, NO REDNESS OR SWELLING NOTED. MULTIPLE SKIN ISSUES NOTED THROUGHOUT BODY, SEE SKIN ASSESSMENT. OPTIFOAM APPLIED TO BUTTOCKS WOUNDS, C/D/I AND OPTIFOAM TO BILATERAL ELBOWS, C/D/I. PT CLEANED AND REPOSITIONED. WEAK PEDAL PULSES. EDEMA TO BLE. PT ORIENTED TO ROOM AND SURROUNDINGS. PT'S WALKER AT BEDSIDE. BED IN LOW POSITION, CALL LIGHT WITHIN REACH. PRIMARY RN DEBI AT BEDSIDE FOR CONTINUITY OF CARE.
[2019-08-13 22:32] VITALS: Ht 167.6 cm; Wt 156.2 kg
--- NOTE | 2019-08-13 22:40 | NUR ---
CARDENAS CATHETER LEBANESE 16 INSERTED, DRAINING W/ YELLOW COLORED URINE. PT TOLERATED PROCEDURE WELL.
--- NOTE | 2019-08-14 00:33 | NUR ---
DR DURON MADE AWARE OF PT,S VENOUS ULTRASOUND TO BLE RESULT. ORDER RECEIVED TO START PT ON HEPARIN PROTOCOL. STARTED PT ON HEPARIN DRIP 1800UNITS/HR PER PROTOCOL.PTT LEVEL SCHEDULED AT 0600. WILL CONTINUE TO MONITOR.
[2019-08-14 01:50] VITALS: BP 100/48
[2019-08-14 04:38] VITALS: BP 105/55
--- NOTE | 2019-08-14 06:25 | NUR ---
SLEPT MOST OF THE NIGHT. NO COMPLAINTS NOTED AT THIS TIME. AFEBRILE AND VITAL SIGNS STABLE. RESP. EVEN AND UNLABORED, ON ROOM AIR, NO ACUTE DISTRESS NOTED. HEPARIN DRIP INFUSING AT 1800UNITS/HR, PENDING NEXT PTT LEVEL. DENIES PAIN OR ANY DISCOMFORT AT THIS TIME. KEPT COMFORTABLE. WILL CONTINUE TO [id number].
--- NOTE | 2019-08-14 07:40 | NUR ---
RECIEVED REPORT FROM [facility] NURSE DEBI. PATIENT IS AWAKE ALERT AND ORIENTED. NO REPORT OF PAIN AT THIS TIME FROM THE PATIENT. PATIENT CURRENTLY ON HEPARIN DRIP. CURRENTLY AWAITING RECENT PTT. CARDENAS IN PLACE DRAINING YELLOW URINE TO GRAVITY. BED IN THE LOW POSITION. PATIENT INSTRUCTED TO UTILIZE THE CALL LIGHT FOR NURSING ASSITANCE. SAFETY PRECAUTIONS IN PLACE.
[2019-08-14 07:50] LABS: CARBON DIOXIDE 27 mmol/L (21-32); CHLORIDE SERUM 104 mmol/L (98-107); CREATININE SERUM 0.9 mg/dL (0.6-1.0); GFR1 > 60 mL/min; GLUCOSE SERUM 100 mg/dL (74-106); POTASSIUM SERUM 3.4 mmol/L (3.5-5.1); SODIUM SERUM 139 mmol/L (136-145)
[2019-08-14 07:51] LABS: CALCIUM 8.2 mg/dL (8.5-10.1)
--- NOTE | 2019-08-14 08:58 | NUR ---
RECIEVED CRITICAL PTT VALUE OF 103.8 FOR THIS PATIENT.
[2019-08-14 09:00] VITALS: BP 100/39
--- NOTE | 2019-08-14 09:22 | NUR ---
HELD HEPARIN INFUSION FOR ONE HOUR PER PHARMACY PROTOCOL DUE TO CRITICALL PTT RESULT OF 103.8.
[2019-08-14 09:28] LABS: BASOPHIL % 0.3 % (0-2); PLATELET COUNT 307 x10^3mcL (130-400)
[2019-08-14 09:30] LABS: RED CELL DISTRIBUTION WIDTH 16.1 % (11.5-14.5)
[2019-08-14 12:28] VITALS: BP 107/64; BP 160/37
--- NOTE | 2019-08-14 16:11 | NUR ---
PATIENT'S WOUND DRESSING REAPPLIED BY WOUND CARE NURSE. PATIENT ALSO TRANSFERRED TO AIR MATTRESS BED. PATIENT'S HEPARIN DISCONTINUED AT 1400. NO REPORT OF PAIN FROM THE PATIENT AT THIS TIME. FEET ELEVATED ON PILLOWS.
--- NOTE | 2019-08-14 16:50 | NUR ---
WOUND CARE EVALUATION NOTE: REASON FOR EVALUATION: MULTIPLE WOUNDS SKIN ASSESSMENT DONE WITH PRIMARY RN WITH THIS 59 Y/O FEMALE PT ADMITTED FROM HOME TO [facility] [place] WITH INITIAL DX OF WEAKNESS. PAST MEDICAL HX INCLUDES LLE DVT. BLE LYMPHODEMA, DM II, MORBID OBESITY AND PCOS. PT. ADMITTED WITH MULTIPLE PRESSURE ULCERS THIS ADMISSION, PT IS AWAKE, ALERT X4. PER PT. SHE DOES NOT KNOW HOW HER SKIN CONDITION WAS PRIOR DISCHARGED FROM SNF TO HOME, AND ASKED HOW OFTEN SHE GET TO SHOWER, TURNING AND OTHER PERSONAL HYGIENE DURING THE TIME SHE STAY AT HOME (ABOUT A WEEK) WELL ASK PT. HOW OFFEN SHE GETS UP FROM CHAIR, PT. KEEP QUIET. NO ANSWER FROM HER. PT. SKIN IS WARM AND DRY, BLE NO HAIR GROWTH, DORSAL PEDAL PULSES DIFFICULT TO PALPATE DUE TO +3 EDEMA, F/C IN PLACE, And CLOUDY COLOR WITH MODERATE AMOUNT URINE OUTPUT OBSERVED. PLAN OF CARE DISCUSSED WITH PRIMARY RN AND PT. AND VERBALIZES UNDERSTANDING. PLEASE CONSIDER THAT AFTER SNF REHAB. CARE, PT. MAY NEED A CUSTODIAL CARE FACILITY FOR HER NEEDS. PT AGREEABLE AT THIS TIME. INTEGUMENTARY: -INTERTRIGO R/L UNDER BREAST FOLDS AND LOWER ABDOMENAL FOLDS, SKIN RED AND INTACT -SEVERE INCONTINENT ASSOCIATED DEMATITIS RIGHT POSTERIOR THIGH WITH MULTIPLE PARTIAL THICKNESS SKIN EROSIONS WITH LARGEST [id number], DEPTH UTD, WOUND BED IS BROWN MIGUEL WOUND SKIN DENUDED, MOIST WITH ODOR -SEVERE INCONTINENT ASSOCIATED DEMATITIS LEFT POSTERIOR THIGH WITH MULTIPLE PARTIAL THICKNESS SKIN EROSIONS WITH LARGEST 4X25CM, DEPTH IS UTD, WOUND BED IS BROWN MIGUEL WOUND SKIN DENUDED, MOIST WITH ODOR -INCONTINENT ASSOCIATED DERMATITIS TO GROINS, ANTERIOR MEDIAL THIGHS, PERINENM AND PERIANAL REDNESS, SKIN WITH MULTIPLE PIN POINT EROSIONS, FURTHER DAMAGE INDICATED. -SACRALCOCCYX PRESSURE ULCER UN-STAGEABLE 2X1CM DEPTH IS UTD WOUND BED IS MOIST 100% YELLOW SLOUGH COVERED, MIGUEL WOUND SKIN INTACT REDNESS EXTENDED TO RIGHT AND LEFT BUTTOCKS -RIGHT LATERAL MIGUEL-ANKLE PRESSURE ULCER UN-STAGEABLE SITE #1 2X1.5CM DEPTH UTD, SITE #2 2X2CM DEPTH UTD AND MIGUEL WOUND REDNESS WITH WOUND EDGE MAY DIFFUSE, WOUND BED IS DRY NO ODOR, PAIN TO TOUCH 3/10 -LEFT HEEL DTI 3X3CM 100% MAROON COLOR MUSHY WITH SKIN INTACT AND PARTIAL CALLUS PEELING OFF -BILATERAL LOWER LEGS CHRONIC LYMPHODEMA WITH ELEPHANTIASIS MULTIPLE HEALED ULCERATIONS SCARS XEROSIS WITH DRY PEELING SCALLY SKIN TO ENTIRE LEGS TO FEET. -THIN CALLUS TO BOTH HEELS RECOMMENDATIONS: -SURGEON CONSULT FOR DEBRIDEMENT BILATERAL POSTERIOR THIGHS, SACRALCOCCYX AND RIGHT LATERAL MIGUEL-ANKLE UNSTAGEABLE WOUND -APPLY HYDRAGUARD TO BLE/FEET 3X A DAY -CLEANSE GROINS, ANTERIOR MEDIAL THIGHS, PERINENM AND PERIANAL WITH SOAP AND WATER, PAT DRY AND ANTIFUNGAL OINTMENT BID AND PRN IF SOILING. -CLEANSE SACRALCOCCYX AND RIGHT LATERAL MIGUEL-ANKLE WITH WOUND CLEANSING SOLUTION, PAT DRY, APPLY ADAPTIC DRESSING AND COVER WITH DRY DRESSING QD AND PRN IF SOILING -CLEANSE BILATERAL POSTERIOR THIGHS WITH WOUND CLEANSING SOLUTION, PAT DRY, APPLY ADAPTIC DRESSING AND COVER WITH ABD PAD, SECURED WITH TAPE QD AND PRN -APPLY SKIN PREP WIPE TO LEFT HEEL BID AND OPEN TO AIR -HEEL RAISERS TO BILATERAL HEELS -OFFLOAD BILATERAL HEELS BY PLACING PILLOWS UNDER CALVES UNLESS OTHERWISE CONTRAINDICATED -PRESSURE REDISTUBUTION SURFACE THERAPY -TURN AND REPOSITION Q2H, OFFLOAD SACRALCOCCYX BY TURNING RIGHT AND LEFT -MONITOR SKIN CONDITION EACH TIME PT IS TURNED AND REPOSITIONS -CONTINUE TO FOLLOW RD RECOMMENDATIONS PLEASE CONTACT WOUND CARE NURSE FOR ANY QUESTION AND CHANGE OF WOUND CONDITION.
[2019-08-14 17:40] VITALS: BP 103/56
--- NOTE | 2019-08-14 18:30 | NUR ---
PATIENT RECIEVED PO XARLETO PER PHARMACY ORDER. HEPARIN DISCONTINUED FOR THIS PATIENT. PATIENT TO RECIEVE CONTINUED ANTIBIOTIC TREATMENT. PATIENT CURRENTLY ON AIR MATTRESS. SAFETY PRECAUTIONS IN PLACE. CALL LIGHT WITHIN REACH. BILATERAL LOWER EXTREMTIEIS ELEVATED ON PILLOWS. NO REPORT OF PAIN OR DISCOMFORT FROM PATIENT. WILL ENDORSE CARE OF PATIENT TO NOC NURSE.
--- NOTE | 2019-08-14 20:40 | NUR ---
Pt. received from day shift, currently resting in bed. Pt. is a/o x4, able to make needs known, able to follow commands. Pt. has no c/o h/a, n/v, chest pain, pain, or s/o distress or SOB. Pt. did c/o to day shift her throat was sore, will continue to monitor offer ice chips, and call MD in AM and endorse to next shift. Otherwise, [facility] call light placed within reach, pt. educated on when and how to use call light system, bed set at lowest position, will continue to monitor.
[2019-08-14 20:52] VITALS: BP 107/52
--- NOTE | 2019-08-15 04:04 | NUR ---
Pt. noted to be asleep most of the shift, but arousable using minimal stimuli. Pt. has no c/o pain, or s/o sob or distress. Pt. given Zosyn as ordered, IV site patent and dressing in tact. Will continue to monitor pt.
[2019-08-15 05:08] VITALS: BP 101/51
[2019-08-15 06:31] LABS: BASOPHIL % 0.4 % (0-2); PLATELET COUNT 305 x10^3mcL (130-400)
[2019-08-15 06:38] LABS: RED CELL DISTRIBUTION WIDTH 16.6 % (11.5-14.5)
--- NOTE | 2019-08-15 06:54 | NUR ---
Pt. noted to be asleep throughout most of the night. Easily arousable using verbal stimuli. pt. had no c/o pain, discomfort or SOB. Will continue to monitor and endorse to next shift RN.
--- NOTE | 2019-08-15 06:57 | NUR ---
Called Dr. Barron this am, reported K level of 3.4, as per . it is okay, no new order. Will continue to monitor and endorse to next shift RN.
[2019-08-15 07:04] LABS: CARBON DIOXIDE 28.5 mmol/L (21-32); CHLORIDE SERUM 106 mmol/L (98-107); GLUCOSE SERUM 99 mg/dL (74-106); POTASSIUM SERUM 3.4 mmol/L (3.5-5.1); SODIUM SERUM 140 mmol/L (136-145)
[2019-08-15 07:05] LABS: CALCIUM 7.8 mg/dL (8.5-10.1); CREATININE SERUM 0.7 mg/dL (0.6-1.0); GFR1 > 60 mL/min
--- NOTE | 2019-08-15 07:15 | NUR ---
RECIEVED PT SITTING UP IN BED WITH NO C/O PAIN OR DISTRESS. A/O X4 WITH NO URBINA OR DIZZINESS. LUNGS CTAB. WOUND CARE TO BUTTOCKS AND ELBOWS. BLE EDEMA NOTED. NS FOUND RUNNING IN RAC TO TKO, CDI AND PATENT. SAFETY PRECAUTIONS IN PLACE, CALL LIGHT BILLY HOWE, WILL MONITOR.
[2019-08-15 09:17] VITALS: BP 105/53
[2019-08-15 12:35] VITALS: BP 104/60
--- NOTE | 2019-08-15 13:58 | NUR ---
1. Recommend continuing CCHO diet. 2. Recommend Garth BID. Discussed with Dr. Barron
--- NOTE | 2019-08-15 13:58 | NUR ---
Initial Nutrition Assessment: 256/A [facility] IA HR Dx: Dehydration, cellulitis R buttocks PMHx: DM, HTN, PNA PSHx: none Labs: K 3.4L, ALB 2.4L, HGB 9.3L Meds: Ativan, D 50%, Glucophage, Humulin, lactinex, morphine, norco, theragran M, Vitamin C, zinc sulfate, zosyn Diet: [facility] PO intake since admission: (08/15) breakfast 90%, (08/14) lunch, breakfast 75% Ht: 167.64 cm (66") Wt: 156 kg (343#) BMI: 55.6 kg/m2 Bed scale: 343# IBW: 130# (59 kg) %IBW: 263 UBW: 343# Age: 59/F Food Allergies: NKFA Skin: BLE erythema, swelling, dressing on buttocks Carlton: 14 Edema: BLE GI: Last BM: 08/13 Per H&P, Pt is a 59 YO H/O DM HTN perip vasc ds DVT cellulitis. She was previously admitted to the hosp later transferred to a SNF for continuous antibiotics and pt. she was sent back home less than a week ago. she than started to deteriorate at home, LE infections restarted and becoming more weak and with frequent falling and unable to get back up. RD Note (08/15): Patient was alert and oriented and said that she has good PO. Patient is willing to consume Garth BID for wound healing. FNS received consult for 'ulcer on buttocks and sacro-coccyx' on 08/14. Per treatment manager note (08/14), pt has multiple incontinent associated dermatitis to groin and thighs, sacro-coccyx pressure ulcer, right ankle gina-ankle pressure ulcer. Problem with: N/V/D/C: none Problems with: Chewing: Swallowing: none Current appetite: good Recent wt change: none %wt change: n/a Vitamin/Supplement use: MVI Special diet at home: Regular Physical activity: sedentary Nutrition education given: PO was encouraged for wound healing. Food-drug interactions: none Education given: n/a Estimated Nutritional Needs Based on adjusted body weight (83 kg) Energy: 3434-3209 kcal/day (30-35 kcal/kg for wound healing) Protein: 99-116 g/day (1.2-1.4 g/kg for wound healing) Fluid: 7129-0452 mL/day (1 mL/kcal) Nutrition Diagnosis: 1. Increased nutrient needs related to increased metabolic demands as evidenced by wounds, pressure ulcers. Intervention 1. Recommend continuing CCHO diet. 2. Recommend Garth BID. Discussed with Dr. Barron Monitor/Evaluate Goal: PO intake at least 75% of estimated needs Monitor: PO intake, Labs, GI function F/U in 3-5 days as moderate risk
--- NOTE | 2019-08-15 16:52 | NUR ---
DR ALLEN AT BEDSIDE ASSESSING WOUNDS AND DISCUSSING POC WITH PT, SHE VERBALIZES UNDERSTANDING. PT WOUND CARE DONE AND MIGUEL AREA CLEANED BY NURSING TEAM. DRESSING CDI. WILL CARRY OUT ANY NEW ORDERS.
[2019-08-15 18:02] VITALS: BP 119/47
--- NOTE | 2019-08-15 18:33 | NUR ---
PT SITTING UP IN BED WITH NO C/O PAIN OR DISTRESS. A/O X4 WITH NO URBINA OR DIZZINESS. LUNGS CTAB. WOUND CARE DONE TODAY, DRESSINGS CDI. BLE EDEMA NOTED, LEGS ELEVATED ON PILLOWS. XARELTO HELD AND PT NPO AFTER MIDNIGHT PER MD ORDER FOR PROCEDURE TOMORROW. RAC IV CDI AND PATENT. SAFETY PRECAUTIONS IN PLACE, CALL LIGHT IWTHIN REACH, WILL ENDORSE CARE TO NIGHT NURSE.
--- NOTE | 2019-08-15 19:10 | NUR ---
RECEIVED PT IN BED RESTING. NO DISTRESS NOTED. DENIES PAIN OR ANY DISCOMFORT AT THIS TIME.IV SITE TO RAC PATENT AND INTACT. WOUND TO BILATERAL BUTTOCKS WITH DRESSING. WOUND TO RIGHT LATERAL HEEL WITH DRESSING CDI. BED IN LOWEST POSITION,CALL LIGHT WITHIN REACH. WILL CONTINUE TO MONITOR.
[2019-08-15 20:34] VITALS: BP 113/58
[2019-08-16 04:42] VITALS: BP 118/63
--- NOTE | 2019-08-16 05:45 | NUR ---
PT AWAKE. NO DISTRESS NOTED. NO C/O PAIN. CHANGED DRESSING TO BILATERAL AREA.F/C CARE DONE.REPOSITIONED PT. BED IN LOWEST POSITION,CALL LIGHT WITHIN REACH. WILL CONTINUE TO MONITOR.
--- NOTE | 2019-08-16 07:25 | NUR ---
PATIENT LYING IN BED WITH EYES CLOSED NO S/S OF ANY RESPIRATORY DISTRESS, CHEST RISE EQUAL AND UNLABORED. IV NO ATTATCHED CATHETER ON SIDE OF ARM. PATIENT DENIES ANY PAIN NO BLEEDING NOTED. CLEANED AND APPLIED DRESSING. WILL REINSERT NEW IV. PATIENT A&O X4, LUNGS CTA WITH DIMINISHED BASES BILAT. ALL NEEDS ATTENDED TO AT THIS TIME. BED IN LOWEST POSITION CALL LIGHT WITHIN REACH. WILL CONTINUE TO MONITOR.
[2019-08-16 08:17] VITALS: BP 116/63
--- NOTE | 2019-08-16 09:30 | NUR ---
CLEANED AND REPOSITIONED PATIENT FROM WHICH WAS LOOSE. NEW DRESSING APPLIED TO WOUNDS. PATIENT TOLERATED WELL. ALL NEEDS ATTENDED TO AT THIS TIME. BED IN LOWEST POSITION CALL LIGHT WITHIN REACH. WILL COTNINUE TO MONITOR.
--- NOTE | 2019-08-16 12:15 | NUR ---
Dr Dodd at bedside updating patient on care. offerred I.S. to patient and instructed on use. Patient verbalized understanding. all questions and concerns addressed at this time. Performed CHG wipe bath for OR prep. Bed in lowest position call light within reach. Will continue to monitor.
--- NOTE | 2019-08-16 13:58 | NUR ---
PATIENT HAD ANOTHER BM CLEANED AND CHANGED DRESSINGS. PATIENT TOLERATED WELL. ALL NEEDS ATTENDED TO AT THIS TIME. BED IN LOWEST POSITION CALL LIGHT WITHIN REACH. WILL CONTINUE TO MONITOR.
--- NOTE | 2019-08-16 14:25 | NUR ---
PATIENT DOWN TO OR FOR PROCEDURE
[2019-08-16 16:35] VITALS: BP 138/92
--- NOTE | 2019-08-16 16:35 | NUR ---
Patient back from or, dressings in place. Patient denies pain at this time. V/S stable. All needs attended to at this time. Bed in lowest position call light coby wray. Will continue to monitor.
--- NOTE | 2019-08-16 19:00 | NUR ---
PATIENT LYING IN BED DENIES ANY PAIN AT THIS TIME. IV ON LUE PATENT AND INTACT NO REDNESS OR EDEMA. DRESSINGS IN PLACE. ALL NEEDS ATTENDED TO AT THIS TIME. BE DIN LOWEST POSITION CALLLIGHT WITHIN REACH. WILL ENDORSE CARE TO NIGHT NURSE.
--- NOTE | 2019-08-16 19:30 | NUR ---
RECIEVED REPORT FROM MED/MANAGER INFRASTRUCTURE. NURSING UPDATES. POC DISCUSSED. SEE SHIFT ASSESSMENT FOR ASSESSMENT.
[2019-08-16 21:05] VITALS: BP 117/66
--- NOTE | 2019-08-16 23:14 | NUR ---
URINE CULTURE COLLECTED, PLACED IN BIN.
--- NOTE | 2019-08-17 01:28 | NUR ---
PT RESTING CALMLY IN BED. NO ACUTE CHANGES. WILL CONT TO MONITOR.
--- NOTE | 2019-08-17 04:04 | NUR ---
PT RESTING CALMLY IN BED. NO ACUTE CHANGES.
[2019-08-17 04:58] VITALS: BP 119/74
[2019-08-17 06:45] LABS: BASOPHIL % 0.4 % (0-2); PLATELET COUNT 327 x10^3mcL (130-400)
[2019-08-17 06:56] LABS: RED CELL DISTRIBUTION WIDTH 16.6 % (11.5-14.5)
[2019-08-17 07:06] LABS: CALCIUM 8.2 mg/dL (8.5-10.1); CARBON DIOXIDE 29.1 mmol/L (21-32); CHLORIDE SERUM 106 mmol/L (98-107); CREATININE SERUM 0.6 mg/dL (0.6-1.0); GFR1 > 60 mL/min; GLUCOSE SERUM 83 mg/dL (74-106); POTASSIUM SERUM 4.2 mmol/L (3.5-5.1); SODIUM SERUM 141 mmol/L (136-145)
--- NOTE | 2019-08-17 07:35 | NUR ---
RECEIVED PT RESTING IN BED. AAOX4. RESP EVEN AND UNLABORED ON RA. DENIES PAIN. ON HILL-ROM MATTRESS, REPOSITIONED EVERY 15 MINUTES. GEN WEAKNESS. IV TO MÓNICA, NO REDNESS OR SWELLING NOTED. CARDENAS CATHETER DRAINING YELLOW URINE TO GRAVITY. HOB SLIGHTLY ELEVATED. R FOOT C/D/I. BED IN LOW POSITION, CALL LIGHT WITHIN REACH. WILL CONTINUE TO MONITOR.
--- NOTE | 2019-08-17 07:36 | NUR ---
REPORT GIVEN TO REGI TENORIO. RELIEAVED OF DUTIES.
[2019-08-17 08:32] VITALS: BP 115/73
[2019-08-17 12:06] VITALS: BP 123/66
--- NOTE | 2019-08-17 12:17 | NUR ---
PT IN NO ACUTE DISTRESS. RESTING IN BED WATCHING TV. RESP EVEN AND UNLABORED ON RA. IV TO MÓNICA, NO REDNESS OR SWELLING NOTED. REPOSITIONED IN BED REQUESTED. CARDENAS CATHETER DRAINING YELLOW URINE TO GRAVITY. HOB SLIGHTLY ELEVATED. CALL LIGHT WITHIN REACH. WILL CONTINUE TO MONITOR.
--- NOTE | 2019-08-17 14:59 | NUR ---
PT HAD BM, CLEANED AND REPOSITIONED FOR COMFORT. WOUND DRESSING DONE ORDERED. PICTURES TAKEN AND PLACED IN CHART. PT TOLERATED WELL. WILL CONTINUE TO MONITOR.
[2019-08-17 17:15] VITALS: BP 121/66
--- NOTE | 2019-08-17 18:28 | NUR ---
PT RESTING IN BED. NO ACUTE DISTRESS. AAOX4. RESP EVEN AND UNLABORED ON RA. NO C/O PAIN. DRESSING TO R FOOT C/D/I. DRESSING TO BUTTOCKS C/D/I. CARDENAS CATHETER DRAINING YELLOW URINE TO GRAVITY. HOB ELEVATED. HILL-ROM MATTRESS REPOSITIONING EVERY 15 MINUTES. IV TO MÓNICA, NO REDNESS OR SWELLING NOTED. BED IN LOW POSITION, CALL LIGHT WITHIN REACH. WILL ENDORSE TO ONCOMING SHIFT.
--- NOTE | 2019-08-17 20:00 | NUR ---
RECEIVED PT IN BED, ON HILL ROM MATTRESS, RESTING QUIETLY. A/O X4. RESP. EVEN AND UNLABORED. ON ROOM AIR, LUNG SOUNDS CLEAR BILAT. NO ACUTE DISTRESS NOTED. AFEBRILE AND VITAL SIGNS STABLE.MED-SURG PT, DENIES CP OR ANY DISCOMFORT AT THIS TIME. HL TO MÓNICA, INTACT AND PATENT. DRESSINGS TO RT , BUTTOCKS AND ELBOWS DRY AND INTACT. CARDENAS CATH INTACT AND DRAINING YELLOW COLOR URINE. ASSISTED WITH HS CARE. NO COMPLAINTS NOTED AT THIS TIME. CALL LIGHT WITHIN REACH. WILL CONTINUE TO MONITOR.
[2019-08-17 21:12] VITALS: BP 108/55
--- NOTE | 2019-08-18 01:46 | NUR ---
NO COMPLAINTS NOTED AT THIS TIME. RESTING QUIETLY IN BED, WITH EYES CLOSED, APPEARS ASLEEP, EASILY AROUSABLE. RESP. EVEN AND UNLABORED. NO ACUTE DISTRESS NOTED. CALL LIGHT WITHIN REACH. WILL CONTINUE TO MONITOR.
[2019-08-18 05:57] VITALS: BP 130/68
--- NOTE | 2019-08-18 06:08 | NUR ---
SLEPT MOST OF THE NIGHT. NO SIGNIFICANT CHANGE NOTED IN PT,S CONDITION. AFEBRILE AND VITAL SIGNS STABLE. DENIES PAIN OR ANY DISCOMFORT AT THIS TIME. DUE MEDS GIVEN ORDERED, TODD. WELL. RESP. EVEN AND UNLABORED. NO ACUTE DISTRESS NOTED. CARDENAS CATH TO GRAVITY. CARE DONE. KEPT COMFORTABLE. CALL LIGHT WITHIN REACH. WILL CONTINUE TO MONITOR.
--- NOTE | 2019-08-18 07:20 | NUR ---
RECEIVED PT FROM TAX ADJUSTER NURSE. PT RESTING IN BED, AOX4, RESP E/U ON RA. NO ACUTE DISTRESS NOTED AT THIS TIME. IV TO MÓNICA SET TO KVO W/ NO SIGNS OF INFILTRATION. OPTIFOAM TO BILAT ELBOWS AND DRESSING TO R FOOT CDI. HILLROM MATTRESS IN PLACE. BED IN LOWEST POSITION AND CALL LIGHT WITHIN REACH. WILL CONTINUE TO MONITOR.
[2019-08-18 07:34] LABS: BASOPHIL % 0.3 % (0-2); PLATELET COUNT 352 x10^3mcL (130-400); RED CELL DISTRIBUTION WIDTH 16.7 % (11.5-14.5)
[2019-08-18 07:49] LABS: CALCIUM 8.7 mg/dL (8.5-10.1); CARBON DIOXIDE 29.4 mmol/L (21-32); CHLORIDE SERUM 105 mmol/L (98-107); CREATININE SERUM 0.6 mg/dL (0.6-1.0); GFR1 > 60 mL/min; GLUCOSE SERUM 92 mg/dL (74-106); SODIUM SERUM 140 mmol/L (136-145)
[2019-08-18 08:28] VITALS: BP 131/75
--- NOTE | 2019-08-18 11:50 | NUR ---
PT RESTING IN BED, AOX4, RESP E/U ON RA. DENIES PAIN OR DISCOMFORT TO WOUNDS ON BUTTOCKS AND R FOOT. NO ACUTE DISTRESS NOTED. BED IN LOWEST POSITION AND CALL LIGHT WITHIN REACH. WILL CONTINUE TO MONITOR.
[2019-08-18 12:10] VITALS: BP 119/67
[2019-08-18 16:12] VITALS: BP 114/60
--- NOTE | 2019-08-18 18:25 | NUR ---
PT IN BED WATCHING TV, AOX4, RESP E/U ON RA. NO ACUTE DISTRESS NOTED AT THIS TIME. IV TO MÓNICA W/ NO ERYTHEMA OR EDEMA. DRESSING TO BUTTOCKS AND R FOOT CDI. OPTIFOAM SECURED IN PLACE TO BILAT ELBOWS. CARDENAS DRAINING YELLOW URINE TO GRAVITY. BED IN LOWEST POSITION AND CALL LIGHT WITHIN REACH. WILL ENDORSE TO ONCOMING NURSE.
--- NOTE | 2019-08-18 20:00 | NUR ---
RECEIVED PT IN BED, RESTING, A/O X4. ABLE TO VERBALIZE NEEDS. RESP. EVEN AND UNLABORED.LUNG SOUNDS CLEAR. ON ROOM AIR, NO ACUTE DISTRESS NOTED. ON HILL ROM MATTRESS. TODD. WELL. AFEBRILE AND VITAL SIGNS STABLE. DENIES PAIN OR ANY DISCOMFORT AT THIS TIME. DRESSINGS TO BUTTOCKS, RT FOOT AND ELBOWS, DRY AND INTACT. HL TO MÓNICA, INTACT AND PATENT. CARDENAS CATH INTACT AND DRAINING YELLOW URINE. ASSISTED WITH HS CARE. CALL LIGHT WITHIN REACH . WILL CONTINUE TO MONITOR.
[2019-08-18 21:32] VITALS: BP 115/57
--- NOTE | 2019-08-19 02:08 | NUR ---
NO COMPLAINTS NOTED AT THIS TIME. RESTING QUIETLY.EYES CLOSED, APPEARS ASLEEP, EASILY AROUSABLE. RESP. EVEN AND UNLABORED. NO ACUTE DISTRESS NOTED. CALL LIGHT WITHIN REACH. WILL CONTINUE TO MONITOR.
--- NOTE | 2019-08-19 05:50 | NUR ---
NO SIGNIFICANT CHANGE NOTED IN PT,S CONDITION. SLEPT WELL. AFEBRILE AND VITAL SIGN STABLE. RESP. EVEN AND UNLABORED, NO ACUTE DISTRESS NOTED. DUE MEDS GIVEN ORDERED, TODD. WELL. CARDENAS CATH INTACT AND PATENT. KEPT COMFORTABLE. DENIES PAIN OR ANY DISCOMFORT AT THIS TIME. CALL LIGHT WITHIN REACH. WILL CONTINUE TO MONITOR.
[2019-08-19 05:57] VITALS: BP 116/66
--- NOTE | 2019-08-19 07:30 | NUR ---
PATIENT IS A&OX4, FOLLOWS COMMANDS AND COOPERATES WELL. MEDSURG PATIENT, DENEIS CHEST PAIN. LUNG SOUNDS CTA BIALTERALLY ON RA, O2 SAT 96%. PERIPHERAL PULSE WEAK W/ +3 EDEMA BILATERAL LOWER EXTREMITIES. CARDENAS CATHETER DRAINING OUR CLEAR YELLOW URINE. GENERALIZED WEAKNESS, SUPINE POSITION. BUTTOCK, R FOOT WOUNDS PRESENT. DENIES ANY PAIN OR DISCOMFORT AT THIS TIME. MÓNICA IV SITE IS CDI. WILL CONTINUE TO MONITOR.
[2019-08-19 08:45] VITALS: BP 131/64
[2019-08-19 13:03] VITALS: BP 114/70
[2019-08-19 17:27] VITALS: BP 112/57
--- NOTE | 2019-08-19 18:01 | NUR ---
PATIENT IS A&OX4, FOLLOWS COMMANDS AND COOPERATES WELL. PATIENT DENIES ANY PAIN OR DISCOMFORT AT THIS TMIE. PATIENT IS CURRENTLY RESTING IN BED WHILE WATCHING TELEVISION AND EATING DINNER. PATIENT STATES IS COMFORTABLE AT THIS TIME. IV SITE IS CDI. WILL CONTINUE TO MONITOR.
--- NOTE | 2019-08-19 19:30 | NUR ---
RECIEVED PT RESTING IN BED WIHT NO ACUTE DISTRESS AT THIS TIME, ASSESSMENT PERFORMED AT THIS TIME, PT IS A/OX4 NO COMPLAINTS OF URBINA OR DIZZINESS AT THIS TIME, PT DENIES PAIN OR SOB, ON RA, PT HAS ULCER LIKE WOUNDS TO RLE, AND BILATERAL BUTTOCKS, BILATERAL BUTTOCKS WOUNDS S/P I/D ON THE 08/16/2019, ALL DRESSINGS CDI, IV TO THE MÓNICA, ALL NEEDS ATTENDED TO, SAFETY PRECAUTIONS IN PLACE, WILL CONTINUE TO MONITOR
[2019-08-19 20:50] VITALS: BP 100/49
--- NOTE | 2019-08-19 21:20 | NUR ---
BILATERAL BUTTOCKS DRESSINGS CHANGED, SALINE SOAKED GAUZE PLACED ON THE WOUND BED, COVERED WITH DRY GAUZE AND ABD, PAPER TAPE TO SECURE DRESSING IN PLACE. SAFETY PRECAUTIONS IN PLACE, WILL CONTINUE TO MONITOR
--- NOTE | 2019-08-20 00:07 | NUR ---
PT RESTING IN BED WITH NO ACUTE DISTRESS NOTED AT THIS TIME, PT DENIES PAIN OR SOB, ALL PT NEEDS ATTENDED TO AT THIS TIME, SAFETY PRECAUTIONS IN PLACE, WILL CONTINUNE TO MONITOR
--- NOTE | 2019-08-20 00:14 | NUR ---
PT RESTING IN BED WITH NO ACUTE DISTRESS NOTED AT THIS TIME PT DENIES CHEST PAIN OR SOB AT THIS TIME, PT WATER REFILLED, ALL NEEDS ATTENDED TO AT THIS TIME, SAFETY PRECAUTIONS IN PLACE WILL CONTINUE TO MONITOR
--- NOTE | 2019-08-20 05:19 | NUR ---
PT RESTED COMFORTABLY IN BED WITH NO ACUTE DISTRESS DURING THE NIGHT, PT HAD ONE BM AND BILATERAL BUTTOCK DRESSINGS WERE CHANGED, PT DENIED SOB, PAIN, DIZZINESS THROUGH NIGHT, ALL PT NEEDS ATTENDED TO, SAFETY PRECAUTIONS REMAINED IN PLACE THROUGH CARE, WILL CONTINUE TO MONITOR AND ENDORSE CARE
[2019-08-20 06:00] VITALS: BP 98/60
--- NOTE | 2019-08-20 07:10 | NUR ---
RECEIVED REPORT FROM RJ DELUNA PATIENT LYING IN BED A&O X4 DENIES ANY PAIN AT THIS TIME. LUNGS CTA BILAT NO S/S OF ANY RESPIRATORY DISTRESS. IV ON LUE PATNET AND INTACT. DRESSING INTACT CLEAN AND DRY ON BACK AND R FOOT. CARDENAS DRAINING TO GRAVITY YELLOW URINE. ALL QUESTIONS AND CONCERNS ADDRESSED AT THIS TIME. BED IN LOWEST POSITION CALL LIGHT WITHIN REACH. WILL CONTINUE TO MONITOR.
[2019-08-20 08:16] VITALS: BP 119/63
--- NOTE | 2019-08-20 08:55 | NUR ---
PATIENT LYING IN BED ON HER PHONE. ADMINISTERED SCHEDULED MED PER MAR PATIENT TOLERATED WELL NO ADVERSE REACTIONS NOTED. ALL QUESTIONS AND CONCERNS ADDRESSED AT THIS TIME. BED IN LOWEST POSITION CALL LIGHT WITHIN REACH. WILL CONTINUE TO MONITOR.
--- NOTE | 2019-08-20 09:43 | NUR ---
PER DR ARTUR DURON PUT AN ORDER FOR PICC LINE READ BACK AND CONFIRMED ORDER. WILL FOLLOW WITH ORDER DIRECTED.
--- NOTE | 2019-08-20 10:00 | NUR ---
CLEANED AND REDRESSED PATIENTD WOUND. DRESSINGS C/D/I. REPOSITIONED PATIENT FOR COMFORT. DR WALLACE AT BEDSIDE EVALUATING WOUNDS. NO NEW ORDERS AT THIS TIME. ALL NEEDS ATTENDED TO. BED IN LOWEST POSITION CALL LIGHT WITHIN REACH. WILL CONTINUE TO MONITOR.
--- NOTE | 2019-08-20 11:43 | NUR ---
PATIENT LYING IN BED DENIES PAIN AT THIS TIME. BLOOD SUGAR CHECK WNL NO INSULIN NEEDED. ALL NEEDS ATTENDED TO AT THIS TIME. BED IN LOWEST POSITION CALL LIGHT WITHIN REACH. WILL CONTINUE TO MONITOR.
--- NOTE | 2019-08-20 11:53 | NUR ---
Follow-up Nutrition Assessment: 256/A [facility] MR Dx: Dehydration, cellulitis R buttocks PMHx: DM, HTN, PNA Labs: (08/18) ALB 2.4L, HGB 10.4L Meds: Ativan, D 50%, Glucophage, Humulin, lactinex, Lasix, theragran M, Vitamin C, zinc sulfate, zosyn Diet: CCHO PO Intake: (08/20) breakfast 100%, (08/19) dinner 80%, breakfast 20%, (08/18) dinner 90%, lunch 60%, breakfast 100% Weights: (08/13) 156 kg, (08/20) unable to access as pt is on bariatric bed without weighing scale. I/Os: (08/19) 2700/4600 (-1900) Skin: large ulcer like wounds s/p I &D on 08/16, dressing in place Carl[place]: 14 Edema: +1 BLE GI: Last BM: 08/19 RD Note (08/20): Patient is alert and oriented and she denies any N/V/D/C at this time. She says she has good appetite and PO. Estimated Nutritional Needs Based on adjusted body weight (83 kg) Energy: 3338-4719 kcal/day (30-35 kcal/kg for wound healing) Protein: 99-116 g/day (1.2-1.4 g/kg for wound healing) Fluid: 1015-9692 mL/day (1 mL/kcal) Nutrition Diagnosis: 1. Increased nutrient needs related to increased metabolic demands as evidenced by wounds, pressure ulcers. (ongoing) Intervention: 1. Recommend continuing CCHO diet. 2. Recommend Garth BID. REGI austin Garth BID. Monitor/Evaluate: Goal: Have pt meet at least 75% of estimated needs Monitor: PO intake, Labs, GI function F/U in 3-5 days as moderate risk 08/23-
--- NOTE | 2019-08-20 11:53 | NUR ---
1. Recommend continuing CCHO diet. 2. Recommend Garth BID. REGI Liang BID.
[2019-08-20 12:08] VITALS: BP 118/70
--- NOTE | 2019-08-20 14:10 | NUR ---
PATIENT LYING IN BED WATCHING TV DENIES PAIN AT THIS TIME. QLL QUESTIONS AND CONCERNS ADDRESSED. BED IN LOWEST POSITION CALL LIGHT WITHIN REACH. WILL CONTINUE TO MONITOR.
--- NOTE | 2019-08-20 15:44 | NUR ---
PICC LINE INSERTED ON RUE DRESSING INTACT NO REDNESS OR EDEMA. PATIENT TOLERATED WELL. PT DENIES ANY PAIN AT THIS TIME. BED IN LOWEST POSITION CALL LIGHT WITHIN EACH. WILL CONTINUE TO MONITOR.
[2019-08-20 17:26] VITALS: BP 103/59
--- NOTE | 2019-08-20 18:38 | NUR ---
PATIENT SITTING UP IN BED WATCHING TV. PT DENIES ANY PAIN AT THIS TIME. PICC LINE ON R ARM PATENT AND INTACT SALINE LOCKED NO REDNESS OR EDEMA. DRESSINGS IN PLACE CLEAN AND DRY. FEET ELEVATED ON PILLOWS. CARDENAS CATHETER DRAINING TO GRAVITY YELLOW URINE. ALL QUESTIONS AND CONCERNS ADDRESSED AT THIS TIME. BED IN LOWEST POSITION CALL LIGHT WITHIN REACH. WILL ENDORSE CARE TO NIGHT NURSE.
--- NOTE | 2019-08-20 19:25 | NUR ---
RECIEVED PT RESTING IN [facility] BED WITH NO ACUTE DISTRESS NOTED AT THIS TIME, ASSESSMENT PERFORMED AT THIS TIME, PT IS A/OX4 NO COMPLAINTS OF URBINA OR DIZZINESS, PT DENIES PAIN OR SOB AT THIS TIME, PICC LINE TO THE ERIBERTO DRESSING CDI, CARDENAS IN PLACE DRAINING CLEAR YELLOW URINE, PT HAS ULCER LIKE WOUNDS TO THE BILATERAL BUTTOCKS AND RLE, DRESSINGS CDI AT THIS TIME, ALL PT NEEDS ATENEDED TO, SAFETY PRECAUTIONS IN PLACE, WILL CONTINUE TO MONITOR
[2019-08-20 20:45] VITALS: BP 111/54
--- NOTE | 2019-08-21 00:20 | NUR ---
PT RESTING IN BED WITH NO ACUTE DISTRESS NOTED AT THIS TIME, NO SIGNS OF PAIN OR SOB ON RA, SAFETY PRECAUTIONS IN PLACE, WILL CONTINUE TO MONITOR
--- NOTE | 2019-08-21 05:39 | NUR ---
PT RESTED COMFORTABLY DURING THE NIGHT WITH NO ACUTE DISTRESS NOTED DURING CARE. PT DENIED PAIN OR SOB THROUGH NIGHT, CARDENAS REMAINED IN PLACE AND DRAINED CLEAR YELLOW URINE, DRESSING REMAINED CDI, ALL PT NEEDS ATTENDED TO, SAFETY PRECAUTIONS IN PLACE, WILL CONTINUE TO MONITOR AND ENDORSE CARE
[2019-08-21 05:57] VITALS: BP 112/54
[2019-08-21 06:33] LABS: BASOPHIL % 0.3 % (0-2)
[2019-08-21 06:41] LABS: PLATELET COUNT 414 x10^3mcL (130-400)
[2019-08-21 07:02] LABS: CARBON DIOXIDE 28.3 mmol/L (21-32); CHLORIDE SERUM 104 mmol/L (98-107); CREATININE SERUM 0.7 mg/dL (0.6-1.0); GFR1 > 60 mL/min; GLUCOSE SERUM 99 mg/dL (74-106); POTASSIUM SERUM 4.4 mmol/L (3.5-5.1); SODIUM SERUM 138 mmol/L (136-145)
--- NOTE | 2019-08-21 07:10 | NUR ---
RECEIVED PT FROM CHRISTOPHER RN. PT AA/OX4 LAYING IN BED. NO S/S OF ACUTE DISTRESS. NO COMPLAINT OF PAIN AT THIS TIME. NO SOB ON ROOM AIR. FALL PREC IN PLACE. HILL ROM MATTRESS IN PLACE. RIGHT FOOT DRESSING CDI, LEFT AND RIGHT BUTTOCKS WOUNDS COVERED WITH DRESSINGS, CDI. OPTIFOAM IN PLACE TO BILATERAL ELBOWS FOR PROTECTION, CDI. PT HAS RUE PICC, PATENT WITH BLOOD RETURN X3 PORTS, FLUSHES WELL. DRESSING CDI. INSTRUCTED TO USE CALL LIGHT TO CALL FOR ASSISTANCE PRN. PT VERBALIZED UNDERSTANDING. BED IN LOW POSITION. CALL LIGHT WITHIN REACH. WILL CONTINUE TO MONITOR.
[2019-08-21 08:47] VITALS: BP 109/64
--- NOTE | 2019-08-21 11:30 | NUR ---
WOUND DRESSING TO LEFT AND RIGHT BUTTOCKS REMOVED, DRESSINGS APPEARS SATURATED WITH SEROSANGUINOUS DRAINGE. WOUNDS TO LEFT AND RIGHT BUTTOCKS GENTLY CLEANSED WITH NS, GENTLY PATTED DRY, WET GAUZE DRESSINGS APPLIED TO INNER WOUNDS, COVERED BY DRY 4X4, COVERED BY ABD PADS AND SECURED BY PAPER TAPE. PT TOLERATED DRESSING CHANGE WELL. PT AA/OX4 LAYING IN BED. NO S/S OF ACUTE DISTRESS. NO SOB ON ROOM AIR. GIVEN TYLENOL FOR PAIN, SEE MAR. [place] ROM AIR MATTRESS TURNS Q 15MINUTES, IN PLACE. ERIBERTO PICC LINE IN TACT. PATENT AND FLUSHES WELL. FALL PREC IN PLACE. BED IN LOW POSITION. CALL LIGHT WITHIN REACH. WILL CONT. TO MONITOR.
[2019-08-21 12:09] VITALS: BP 111/66
--- NOTE | 2019-08-21 14:07 | NUR ---
PHYSICAL THERAPY DAILY NOTES CO-SIGN All documentation done by the Therapist Occupational for 08/21/19 has been reviewed. I agree with the documentation. Reviewed/Co-Signed by: Heather Rene PT Documentation Done by:CUATE JACKSON PTA
[2019-08-21 17:03] VITALS: BP 110/66
--- NOTE | 2019-08-21 18:15 | NUR ---
PT LAYING IN BED. AA/OX4. NO C/O PAIN. NO SOB ON ROOM AIR. DRESSINGS TO R/L BUTTOCKS CDI. RUE PICC LINE PATENT WITH BLOOD RETURN, FLUSHES WELL. NO REDNESS, NO SWELLING, NO INFILTRATION. BLE ELEVATED W/ PILLOWS. ROM HILL MATTRESS IN PLACE. FALL PREC IN PLACE. TOLERATING CCHO DIET WELL. NO N/V/D. NO FEVER. NO CHILLS. CALM/COOPERATIVE. BED IN LOW POSITION. CALL LIGHT WITHIN REACH. WILL CONT. TO MONITOR.
--- NOTE | 2019-08-21 19:32 | NUR ---
RECEIVED PT FROM PREVIOUS SHIFT. PT A/OX4. DENIES PAIN. DENIES SOB ON RA. PICC LINE TO RUE, SALINE LOCKED. PT IN [facility] BED, TURNING FREQUENTLY. CALL LIGHT WITHIN REACH, BED IN LOW POSITION. WILL CONTINUE TO MONITOR.
[2019-08-21 19:48] VITALS: BP 108/54
--- NOTE | 2019-08-22 02:07 | NUR ---
PT RESTING IN NO ACUTE DISTRESS. RR EVEN AND UNLABORED. CALL LIGHT WITHIN REACH, BED IN LOW POSITION. WILL CONTINUE TO MONITOR.
[2019-08-22 04:16] VITALS: BP 120/58
--- NOTE | 2019-08-22 07:30 | NUR ---
PT ENDORSED TO ME THIS MORNING, LAYING IN BED RESTING, AA/O X4, BREATHING EVEN AND UNLABORED ON RA, NO ACUTE RESP DISTRESS OR SOB NOTED. MEDSURG/ DENIES ANY CP OR PRESSUR. CARDENAS INTACT AND PATENT/ DRAINING STRAW COLOR URINE. REMAINS ON HILL ROM MATTRESS/ BLE ELEVATED ON TWO PILLOWS/ AND DISCOLORATION NOTED BLE. IV ERIBERTO PICC INTACT AND PATENT/ HEPLOCKED. CALL LIGHT IN REACH/ BED IN LOW POSITION. WILL CONTINUE TO MONITOR.
--- NOTE | 2019-08-22 08:44 | NUR ---
DR MILLER AT BEDSIDE, ASSISTED WITH DRESSING CHANGE, CDI. MEDICATED PER EMAR FOR 7/10 WOUND PAIN.
[2019-08-22 08:49] VITALS: BP 106/54
--- NOTE | 2019-08-22 11:13 | NUR ---
PHYSICAL THERAPY NOTE* ATTEMPTED FOR SCHEDULED PHYSICAL THERAPY TREEATMENT SESSION, PATIENT DECLINED AT THIS TIME SECONDARY TO 10/10 PAIN TO L LE AND SACRAL ULCER AT THIS TIME. REGI MALDONADO MADE AWARE. TREATMENT POSTPONED TO NEXT SCHEULED PHYSICAL THERAPY TREATMENT SESSION, GIVEN PATIENT TOLERANCE AND TIME PERMITTING.
[2019-08-22 11:47] VITALS: BP 102/64
--- NOTE | 2019-08-22 16:40 | NUR ---
PT HAD ANOTHER BM/ WILL CHANGE DRESSING TO BUTTOCKS/ MEDICATED PER EMAR FOR DISCOMFORT. WILL CONTINUE TO MONITOR.
[2019-08-22 16:41] VITALS: BP 111/67
--- NOTE | 2019-08-22 17:21 | NUR ---
CHANGED DRESSING TO RIGHT FOOT/CDI/ TOLERATED WELL.
--- NOTE | 2019-08-22 18:18 | NUR ---
NO ACUTE CHANGES AT THIS TIME, NO ACUTE RESP DISTRESS OR SOB NOTED. PER PT BUTTOCK DISCOMFORT IS GONE, MEDICATED PER EMAR. TOTAL OF 2 LARGE BM TODAY, DRESSING CHANGED X2 TO BUTTOCKS AND X1 TO RIGHT FOOT/ TOLERATED ALL DRESSING CHANGES WELL. CAREDNAS CARE COMPLETE/ TOTAL OF 500ML/DARK YELLOW URINE NOTED. ERIBERTO PICC INTACT AND PATENT/ HEPLOCKED. WILL ENDORSE TO INCOMING RN.
--- NOTE | 2019-08-22 19:35 | NUR ---
RECEIVED PT FROM PREVIOUS SHIFT. PT A/OX4. DENIES PAIN. DENIES SOB ON RA. F/C DRAINING TO GRAVITY WITH YELLOW OUTPUT. PICC LINE TO RUE, DRESSING CDI, FLUSHING WELL WITH GOOD BLOOD RETURN. HILLROM BED, TURNING PT FREQUENTLY. DRESSING TO RLE, CDI. CALL LIGHT WITHIN REACH, BED IN LOW POSITION. WILL CONTINUE TO MONITOR.
[2019-08-22 19:44] VITALS: BP 109/61
[2019-08-23 05:04] VITALS: BP 119/63
--- NOTE | 2019-08-23 07:44 | NUR ---
PT ENDORSE TO ME THIS MORNING, LAYING IN BED RESTING, AA/O X4, BREATHING EVEN AND UNLABORED ON RA, NO ACUTE RESP DISTRESS OR SOB NOTED. MEDSURG. CARDENAS INTACT AND PATENT /CLEAR YELLOW URINE NOTED. GEN WEAKNESS DUE TO BUTTOCK WOUND. DRESSING TO BUTTOCK INTACT/ CDI. DRESSING TO R FOOT CDI. IV PICC TO ERIBERTO INTACT AND PATENT/ HEPLOCKED. CALL LIGHT IN REACH. BED IN LOW POSITION .WILL CONTINUE TO MONITOR.
[2019-08-23 08:00] VITALS: BP 122/59
[2019-08-23 11:59] VITALS: BP 112/64
[2019-08-23 16:11] VITALS: BP 93/65
--- NOTE | 2019-08-23 17:33 | NUR ---
PT C/O OF COUGH, PER DR DURON ORDERS GAVE PT X1 CEPACOL. WILL CONTINUE TO MONITOR.
--- NOTE | 2019-08-23 18:44 | NUR ---
NO ACUTE CHANGES AT THIS TIME, NO ACUTE RESP DISTRESS OR SOB NOTED. CARDENAS INTACT AND PATENT DRAINING YELLOW URINE /TOTAL OUTPUT 720ML. IV PICC LINE INTACT AND PATENT/ HEPLOCKED/ NO REDNESS OR SWELLING NOTED. WILL ENDORSE TO INCOMING RN.
--- NOTE | 2019-08-23 19:46 | NUR ---
RECEIVED PT FROM PREVIOUS SHIFT. PT A/OX4. DENIES PAIN. DENIES SOB ON RA. PICC TO RUE FLUSHING WELL, DRESSING CDI. DRESSING TO RLE CDI. F/C DRAINING TO GRAVITY WITH YELLOW OUTPUT. CALL LIGHT WITHIN REACH, BED IN LOW POSITION. WILL CONTINUE TO MONITOR.
[2019-08-23 19:48] VITALS: BP 102/46
--- NOTE | 2019-08-23 20:37 | NUR ---
CARE ENDORSED TO REGI SPARROW. ALL QUESTIONS AND CONCERNS ADDRESSED AT THIS TIME
--- NOTE | 2019-08-23 21:38 | NUR ---
RECEIEVED PT FROM MARY DELUNA. PT RESTING IN BED, AOX4. RR EVEN AND UNLABORED. NO SIGNS OF ACUTE DISTRESS. WILL CONTINUE TO MONITOR.
--- NOTE | 2019-08-23 23:15 | NUR ---
CHANGED PT WOUND DRESSING WITH JONA DELUNA. PT TOLERATED THE WOUND CHANGE WELL.
--- NOTE | 2019-08-24 00:20 | NUR ---
PT RESTING IN BED. RR EVEN AND UNLABORED. NO SIGNS OF ACUTE DISTRESS. BED IN LOWEST POSITION AND CALL LIGHT WITHIN REACH. WILL CONTINUE TO MONITOR.
[2019-08-24 04:42] VITALS: BP 131/68
--- NOTE | 2019-08-24 07:00 | NUR ---
RECEIVED PT FROM NIGHT RN. PT AWAKE AND ALERT. RES E/U, NO SOB NOTED. DENIES CHEST PAIN/PRESSURE. R PICC PATENT. DRESSING TO RLE CDI. CARDENAS CATHETER DRAINING TO GRAVITY W YELLOW URINE. BED IN LOWEST POSITION, CALL LIGHT WITHIN REACH. SHIFT REASSESSMENT DONE. WILL CONTINUE TO MONITOR
[2019-08-24 08:39] VITALS: BP 107/51
[2019-08-24 10:10] LABS: CALCIUM 9.1 mg/dL (8.5-10.1); CARBON DIOXIDE 29.9 mmol/L (21-32); CHLORIDE SERUM 102 mmol/L (98-107); CREATININE SERUM 0.6 mg/dL (0.6-1.0); GFR1 > 60 mL/min; GLUCOSE SERUM 92 mg/dL (74-106); POTASSIUM SERUM 3.7 mmol/L (3.5-5.1); SODIUM SERUM 138 mmol/L (136-145)
[2019-08-24 10:16] LABS: BASOPHIL % 0.3 % (0-2)
[2019-08-24 10:17] LABS: PLATELET COUNT 439 x10^3mcL (130-400)
--- NOTE | 2019-08-24 10:22 | NUR ---
PHYSICAL THERAPY NOTE ATTEMPT MADE FOR PHYSICAL THERAPY TREATMENT. PATIENT AWAITING PROCEDURE TO BE PERFORMED. PHYSICAL THERAPY TREATMENT POSTPONED AT THIS TIME.
--- NOTE | 2019-08-24 11:31 | NUR ---
AT 0930 GAVE REPORT TO REGI KENT. PROCEDURE CHECKLIST DONE. PT WAS CLEANED AND CHG BATH DONE. [facility] AT 1043 PT WENT DOWN TO OR VIA BED ACCOMPANIED BY STONE BANKER. PT AAOX4. ERIBERTO PICC WAS SL, CDI AND PATENT. NPO SINCE MIDNIGHT. ANESTHESIA CONSENT WILL BE SIGNED IN OR.
--- NOTE | 2019-08-24 12:40 | NUR ---
PT CAME BACK FROM OR VIA BED ACCOMPANIED BY RN. KATIE. RES E/U. DENIES ANY PAIN DISCOMFORT. PICC TO ERIBERTO CDI AND PATENT. BILATERAL DEBRIDEMENT W KERLIX AND ABD. DRESSING CDI AND PATENT.
[2019-08-24 13:15] VITALS: BP 113/68
--- NOTE | 2019-08-24 15:39 | NUR ---
PHYSICAL THERAPY DAILY NOTES CO-SIGN All documentation done by the Curbstone Setter for 08/24/19 has been reviewed. I agree with the documentation. Reviewed/Co-Signed by: Heather Rene PT Documentation Done by: ITALO RUIZ, GUN TESTER
[2019-08-24 16:40] VITALS: BP 119/61
--- NOTE | 2019-08-24 17:00 | NUR ---
[facility] CALLED TO [facility] FUNGAL CULTURE [facility]. INFORMED LAB THAT FUNGAL CULTURE WAS FROM BIOPSY AND CANNOT COLLECT CULTURE.
--- NOTE | 2019-08-24 18:21 | NUR ---
ASSISTED PT TO BATHROOM. PT WALKED TO THE BATHROOM WITHOUT DIFFICULTY. NO SIGNIFICANT CHANGES NOTED. RES E/U, DENIES PAIN/DISCOMFORT. TELE 24 SR. HR IN 80'S. IV SITE TO R HAND INFUSING NS 80ML/HR. PT IN BED. BED IN LOWEST POSITION, CALL LIGHT WITHIN REACH. FAMILY AT BED SIDE. WILL ENDORSE CARE TO NEXT SHIFT.
--- NOTE | 2019-08-24 19:30 | NUR ---
A/O x4. MED SURG. DENIES ANY CHEST PAIN OR PRESSURE. PULSES ARE PRESENT. EDEMA NOTED ON BLE, ELEVATED ON PILLOWS. LUNGS CLEAR IN ALL FEILDS. ON RA, DENIES ANY SOB. EQUAL CHEST RISE AND FALL. NO SIGN OF RESP DISTRESS. BOWEL SOUNDS ARE ACTIVE. DENIES ANY ABD PAIN. ABD IS OBESED AND SOFT. CARDENAS BAG BELOW THE BLADDER, DRAINGING VIA GRAVITY. YELLOW URINE NOTED. NO DEPENDENT LOOP OR KINK NOTED. GENERAL WEAKNESS. PT [facility] BLE BROWN DISCOLORATION NOTED. DRESSING ON R FOOT IS CLEAN AND INTACT S/P DEBRIDMENT. DRESSING ON BEATRICE BUTTOCKS, CLEAN AND INTACT, S/P DEBRIDMENT. PT REFUSED TO REMOVE DRESSING FOR ASSESMENT, STATING IT HURTS WHEN TOUCHED. OFFERED PT PAIN MEDICATION PRIOR TO INSPECTION, PT REFUSED AND STATED SHE WANTS IT DONE DURING THE DAY BECAUSE SHE DOESN'T WANT TO BE IN PAIN DURING THE NIGHT. DENIES PAIN AT THIS TIME. PICC LINE ON ERIBERTO, INTACT AND PATENT. BED IS AT LOWEST SETTING. CALL LIGHT WITHIN REACH. WILL CONTINUE TO MONTIOR.
[2019-08-24 21:23] VITALS: BP 105/61
--- NOTE | 2019-08-25 00:27 | NUR ---
PT IS RESTING IN BED WITH BOTH EYES CLOSED. BREATHING EVEN AND UNLABORED. NO SIGN OF DISTRESS NOTED. PT ON HER L SIDE. BED IS AT LOWEST SETTING. CALL LIGHT WIHTIN REACH. WILL CONTINUE TO MONTIOR.
[2019-08-25 06:06] VITALS: BP 106/65
--- NOTE | 2019-08-25 06:35 | NUR ---
PT IS RESTING IN BED. DENIES ANY PAIN OR DISTRESS. MID LINE ON ERIBERTO IS INTACT. SIGN WAS PLACED ON HOB OF MIDLINE AND NO B/P OR BLOOD DRAW ON RUE. EDUCATION PROVIDED FOR PT. ALL QUESTIONS AND CONCERNS WERE ADDRESSED. NO ACUTE EVENT OCCURED AT NIGHT. CARDENAS BAG BELOW THE BLADDER WITH NO DEPENDENT LOOP, DRAINING VIA GRAVITY. BED IS AT LOWEST SETTING. CALL LIGHT WITHIN REACH. WILL ENDORSE TO AM NURSE.
[2019-08-25 07:00] LABS: CARBON DIOXIDE 27.1 mmol/L (21-32); CHLORIDE SERUM 104 mmol/L (98-107); CREATININE SERUM 0.5 mg/dL (0.6-1.0); GFR1 > 60 mL/min; GLUCOSE SERUM 90 mg/dL (74-106); POTASSIUM SERUM 3.8 mmol/L (3.5-5.1); SODIUM SERUM 138 mmol/L (136-145)
[2019-08-25 07:18] LABS: BASOPHIL % 0.4 % (0-2)
[2019-08-25 07:23] LABS: PLATELET COUNT 422 x10^3mcL (130-400); RED CELL DISTRIBUTION WIDTH 17.9 % (11.5-14.5)
--- NOTE | 2019-08-25 07:46 | NUR ---
PATIENT A/OX4, NO RESP DISTRESS NOTED ON RA. NO C/O PAIN AT THIS TIME BUT REQUESTING TO BE PREMEDICATED PRIOR TO TURNING AND WOUND CARE. ON [facility] BED, PRESSURE REDISTRIBUTING SETTINGS IN PLACE FOR Q2H TURNS. BOWEL SOUNDS ACTIVE, DENIES N/V. CARDENAS IN PLACE DRAINING YELLOW URINE TO GRAVITY. DRESSING TO RT FOOT DRESSING CDI. IV ACCESS TO MIDLINE ERIBERTO RUNNING D5NS AT 80ML/HR. SAFETY PREC REINFORCED, CALL LIGHT WITHIN REACH.
[2019-08-25 08:45] VITALS: BP 105/64
--- NOTE | 2019-08-25 08:50 | NUR ---
PER WOUND CARE NURSE NIKITA, NOTIFIED PATIENT OF WOUND CARE AND EVAL FOR WOUND VAC ARRANGED WITH ME AT 10:30AM. WILL PREMEDICATE PATIENT WITH NORCO AT 10, PATIENT MADE AWARE AND AGREEABLE.
--- NOTE | 2019-08-25 12:30 | NUR ---
WOUND CARE RE-EVALUATION NOTE: S/P DEBRIDEMENT RIGHT AND LEFT POSTERIOR THIDHTS DONE 08/24/2019, PER DR. HOLLAND VERBAL ORDER TO RE-EVALUATE WOUNDS AND APPLY WOUND VAC. WOUNDS ASSESSED AND WOUND VAC APPLY WITH LEON RN AND YUE, PT. TOLERATED PROCEDURE WELL WITH FREQUENT REPOSITION FOR COMFORT,PAIN LEVEL MANAGEABLE.POC DISCUSSED WITH IDT TEAM (PT AND RD) AND WOUND CARE INSTRUCTIONS EXPLAINED TO PT. PT. VERVALIZES UNDERSTANDING. INTEGUMENTARY: -INTERTRIGO R/L UNDER BREAST FOLDS AND LOWER ABDOMENAL FOLDS IMPROVING -SURGICAL WOUND TO RIGHT POSTERIOR THIGH FULL THICKNESS SKIN LOSS, [id number], WOUND BED WITH 100% GRANULATING TISSUE, SMALL AMOUNT SANGUINEOUS DRAINAGE, NO ODOR, MIGUEL WOUND SKIN MOIST NO ERYTHEMA. -SURGICAL WOUND TO LEFT POSTERIOR THIGH FULL THICKNESS SKIN LOSS, 15X8X0.3CM, WOUND BED WITH 100% GRANULATING TISSUE, SMALL AMOUNT SANGUINEOUS DRAINAGE, NO ODOR, MIGUEL WOUND SKIN MULTIPLE SUPERFICIAL DEBRIDED WOUNDS AND LARGEST IS TO 7 O'CLOCK DIRECTION 2X2CM,1CM TALL, SKIN TAG LIKE TISSUE, MOIST, NO ODOR, NO ERYTHEMA. -INCONTINENT ASSOCIATED DERMATITIS TO GROINS, ANTERIOR MEDIAL THIGHS, PERINENM AND PERIANAL RESOLVED -SACRALCOCCYX PRESSURE ULCER HEALING FROM UN-STAGEABLE, WOUND BED IS 100% PALE PINK SCAR COVERED, MIGUEL WOUND SKIN INTACT -PREVIOUS 2 SITES RIGHT LATERAL MIGUEL-ANKLE PRESSURE ULCERS UN-STAGEABLE TODAY IS 1 WOUND WITH 2X1.5X0.1CM WOUND BED WITH 50 % SCATTERED YELLOW SLOUGH, MOIST, NO ODOR, WOUND EDGE FLAT, MIGUEL- WOUND SKIN INTACT. -LEFT HEEL DTI 1.5X2CM 100% MAROON COLOR WITH SKIN INTACT -THIN CALLUS TO BOTH HEELS RECOMMENDATIONS: -[facility]CI VAC THERAPY TO RIGHT AND LEFT POSTERIOR THIDHTS SURGICAL WOUNDS FOLLOW V.A.C THERAPY CLINICAL GUIDELINES. SET THERAPY ON CONTINOUS THERAPY AT 125 MMHG. CHANGE DRESSING Q72 HOURS AND PRN IS DISLOGGED. -PLEASE USE "Y " CONNECTOR AND CHSHION THE TUBING TO POSTERIOR THIGHS -APPLY HYDRAGUARD TO BLE/FEET 3X A DAY -CLEANSE RIGHT LATERAL MIGUEL-ANKLE WITH WOUND CLEANSING SOLUTION, PAT DRY, APPLY ADAPTIC DRESSING WITH THERAHONEY GEL AND COVER WITH DRY DRESSING QD AND PRN IF SOILING -APPLY OPTIFOAM TO SACRALCOCCYX QD AND PRN IF SOILING -APPLY SKIN PREP WIPE TO LEFT HEEL BID AND OPEN TO AIR -HEEL RAISERS TO BILATERAL HEELS -OFFLOAD BILATERAL HEELS BY PLACING PILLOWS UNDER CALVES UNLESS OTHERWISE CONTRAINDICATED -PRESSURE REDISTUBUTION SURFACE THERAPY -TURN AND REPOSITION Q2H, OFFLOAD SACRALCOCCYX BY TURNING RIGHT AND LEFT -MONITOR SKIN CONDITION EACH TIME PT IS TURNED AND REPOSITIONS -CONTINUE TO FOLLOW RD RECOMMENDATIONS PLEASE CONTACT WOUND CARE NURSE FOR ANY QUESTION AND CHANGE OF WOUND CONDITION.
--- NOTE | 2019-08-25 12:35 | NUR ---
WOUND CARE AND WOUND VAC PLACEMENT DONE ON BILAT BUTTOCKS. RIGHT FOOT DRESSING CHANGED. PATIENT TOLERATED FAIRLY, PREMEDICATED WITH NORCO. PATIENT REQUESTING TO TRY PHYSICAL THERAPY AFTER NEXT NORCO DOSE.
[2019-08-25 12:55] VITALS: BP 114/71
--- NOTE | 2019-08-25 13:38 | NUR ---
Follow-up Nutrition Assessment: 256/A LAURIDIVINE MERIDA MR Dx: Dehydration, cellulitis R buttocks PMHx: DM, HTN, PNA Labs: (08/25) ALB 2.4L, HGB 11.0L, CREAT 0.5L Meds: Ativan, D 50%, Glucophage, Humulin, lactinex, Lasix, theragran M, Vitamin C, zinc sulfate Diet: [facility] [place] PO Intake: (08/24) dinner 100%, lunch, breakfast 0%, (08/23) dinner 100%, lunch 90%, breakfast 80% Weights: (08/13) 156 kg, (08/20) unable to access as pt is on bariatric bed without weighing scale. (08/25)- still unable to access wt as bariatric bed does not have weighing scale, pt not ambulating- mentioned in bed huddles, bed needs to be zerod for accurate measurements. I/Os: (08/24) 2530/2695 (-165) Skin: large ulcer like wounds s/p I &D on 08/16, dressing in place [place]: 15 Edema: +1 BLE GI: Last BM: 08/24 RD Note (08/25): Patient was getting a dressing change. Per RN Niall, pt denies any N/V/D/C at this time. She says she has good appetite and PO. Patient has debridement of bilateral buttocks on 08/24. legal support managerREGI Diallo will add the Garth BID order which was on the previous diet order to the current one. Estimated Nutritional Needs Based on adjusted body weight (83 kg) Energy: 6487-3964 kcal/day (30-35 kcal/kg for wound healing) Protein: 99-116 g/day (1.2-1.4 g/kg for wound healing) Fluid: 6540-2506 mL/day (1 mL/kcal) Nutrition Diagnosis: 1. Increased nutrient needs related to increased metabolic demands as evidenced by wounds, pressure ulcers. (ongoing) Intervention: 1. Recommend continuing CCHO diet. 2. Recommend Garth BID. Monitor/Evaluate: Goal: Have pt meet at least 75% of estimated needs Monitor: PO intake, Labs, GI function F/U in 3-5 days as moderate risk 08/28-08/30
--- NOTE | 2019-08-25 13:38 | NUR ---
1. Recommend continuing CCHO diet. 2. Recommend Garth BID.
--- NOTE | 2019-08-25 15:28 | NUR ---
PHYSICAL THERAPY NOTE WITH HELD TREATMENT TODAY SECONDARY TO PATIENT UNABLE TO BE GIVEN PAIN MED PRIOR TO TREATMENT SECONDARY TO MED SCHEDULE. WILL DEFER TREATMENT TILL NEXT VISIT. NURSING AND PATIENT CONFIRMED AND AWARE.
[2019-08-25 17:26] VITALS: BP 116/60
--- NOTE | 2019-08-25 19:15 | NUR ---
DRAINAGE TO WOUND VAC MARKED, ~20ML STRAW/TEA COLORED OUTPUT. NO C/O PAIN AT THIS TIME. SAFETY PREC REINFORCED. ENDORSED CARE TO [facility] NURSE FEMI.
--- NOTE | 2019-08-25 19:30 | NUR ---
PT IS A/O x4. MED SURG. DENIES ANY CHEST PAIN OR PRESSURE. WEAK PEDIAL PULSES. EDEMA NOTED ON BLE. LUNGS CLEAR IN ALL FEILDS. ON RA, DENIES ANY SOB. EQUAL CHEST RISE AND FALL. NO SIGN OF RESP DISTRESS. BOWEL SOUNDS ARE PRESENT. DENIES ANY ABD PAIN OR DISTRESS. CARDENAS BAG BELOW THE BLADDER DRAINGING VIA GRAVITY. NO DEPENDENT LOOP OR KINK NOTED. WOUND VAC SITE ON BEATRICE BUTTOCKS IS CLEAN AND INTACT. Y PORT CONNECTION INTACT AND CONNECTED TO WOUND VAC ON FOOT OF THE BED. ~20CC OF STAW LIKE MARIA ESTHER LIQUID NOTED IN THE CONTAINER. DRESSING ARE INTACT AND CLEAN. DRESSING ON R FOOT IS CLEAN AND INTACT. NO DRAINAGE NOTED. ON HILLROM MATTRESS, REDISTRIBUTING PT WEIGHT PT Q2HR. DENIES ANY PAIN AT THIS TIME. MIDLINE ON ERIBERTO INTACT AND PATENT. BED IS AT LOWEST SETTING. CALL LIGHT WITHIN REACH. WILL CONTINUE TO MONITOR.
[2019-08-25 21:52] VITALS: BP 108/66
--- NOTE | 2019-08-26 01:58 | NUR ---
PT IS RESTING IN BED WITH BOTH EYES CLOSED. BREATHING EVEN AND UNLABORED. NO SIGN OF DISTRESS NOTED. WOUND VAC IN PLACE AND FUNCTIONING. CARDENAS BAG IN PLACE. BED IS AT LOWEST SETTING. CALL LIGHT WITHIN REACH. WILL CONTINUE TO MONTIOR.
[2019-08-26 06:33] VITALS: BP 111/55
--- NOTE | 2019-08-26 06:57 | NUR ---
PT HAD A LARGE, SOFT BM THIS MORNING. SOME STOOL WAS UNDER PART OF THE DRESSING CLOSE TO THE ANUS. SOILD PART WAS TRIMMED WITH STERILE SCISSOR AND REINFORCED WITH A LARGE TEGADERM LIKE DRESSING. PT TOLERATED WELL. WOUND VAC INTACT. MARKED AT 125CC. CARDENAS CARE PROVIDED. MADE COMFORTABLE IN BED. DENIES ANY PAIN AT THIS TIME. BED IS AT LOWEST SETTING. CALL LIGHT WITHIN REACH. WILL ENDORSE TO AM NURSE.
--- NOTE | 2019-08-26 07:10 | NUR ---
RECEIVED PT FROM NIGHT NURSE. PT IS LAYING DOWN IN BED WITH HOB UP RESTING. PT LOOKS TO BE IN NO ACUTE DISTRESS AND DENIES ANY PAIN AT THIS TIME. RESPIRATIONS EVEN AND UNLABORED ON ROOM AIR. MIDLINE TO ERIBERTO IS PATENT WITH NO SIGNS OF ERYTHEMA OR SWELLING WITH IV FLUIDS INFUSING. CARDENAS CATHETER PRESENT DRAINING CLEAR YELLOW URINE. WOUND VAC PRESENT TO B/L BUTTOCKS. CALL LIGHT WITHIN REACH, BED IN LOWEST POSITION, WILL CONTINUE TO MONITOR.
[2019-08-26 07:30] LABS: BASOPHIL % 0.3 % (0-2)
[2019-08-26 07:46] LABS: PLATELET COUNT 440 x10^3mcL (130-400); RED CELL DISTRIBUTION WIDTH 17.8 % (11.5-14.5)
[2019-08-26 08:41] VITALS: BP 118/65
[2019-08-26 08:43] LABS: CALCIUM 8.4 mg/dL (8.5-10.1); CARBON DIOXIDE 26.9 mmol/L (21-32); CHLORIDE SERUM 105 mmol/L (98-107); CREATININE SERUM 0.5 mg/dL (0.6-1.0); GFR1 > 60 mL/min; GLUCOSE SERUM 95 mg/dL (74-106); SODIUM SERUM 139 mmol/L (136-145)
--- NOTE | 2019-08-26 10:15 | NUR ---
PT REQUESTING TO BE PREMEDICATED WITH NORCO BEFORE WORKING WITH PHYSICAL THERAPY. PHYSCIAL THERAPY STATED WILL BE WORKING WITH PT AROUND 1030. WILL PREMEDICATE AT THIS TIME.
--- NOTE | 2019-08-26 10:25 | NUR ---
CHANGED DRESSING TO RIGHT LATERAL FOOT. WOUND IS CDI WITH NO DRAINAGE OR FOUL SMELL. APPLIED NEW DRESSING, DRESSING IS CDI. PT MADE COMFORTABLE IN BED. WILL CONTINUE TO MONITOR.
[2019-08-26 11:28] VITALS: BP 118/65
[2019-08-26 12:42] VITALS: BP 138/71
--- NOTE | 2019-08-26 14:26 | NUR ---
PT COMPLAINING OF URBINA. MEDICATED ACCORDING TO EMAR. WILL CONTINUE TO MONITOR.
--- NOTE | 2019-08-26 15:36 | NUR ---
PHYSICAL THERAPY DAILY NOTES CO-SIGN All documentation done by the Team Assembly Line Machine Operator for 08/26/19 has been reviewed. I agree with the documentation. Reviewed/Co-Signed by: Trevor Liang PT Documentation Done by:CUATE JACKSON PTA
[2019-08-26 17:17] VITALS: BP 109/54
--- NOTE | 2019-08-26 19:08 | NUR ---
PT IS LAYING DOWN IN BED WITH HOB UP RESTING. PT LOOKS TO BE IN NO ACUTE DISTRESS AT THIS TIME AND DENIES ANY PAIN. RESPIRATONS EVEN AND UNLABORED ON ROOM AIR. MIDLINE IS PATENT WITH FLUIDS INFUSING. DRESSING TO RLE AND B/L BUTTOCKS IS CDI. CALL LIGHT WITHIN REACH, WILL ENDORSE TO ONCOMING SHIFT.
--- NOTE | 2019-08-26 19:37 | NUR ---
RECEIVED PT FROM PREVIOUS SHIFT. PT A/OX4. DENIES PAIN. DENIES SOB ON RA. PICC TO RUE, DRESSING CDI, FLUSHING WELL. WOUND VAC IN USE WITH SEROSANGUINOUS OUTPUT. DRESSING TO RLE, ELEVATED ON PILLOWS. F/C DRAINING TO GRAVITY WITH YELLOW OUTPUT. CALL LIGHT WITHIN REACH, BED IN LOW POSITION. WILL CONTINUE TO MONITOR.
[2019-08-26 20:32] VITALS: BP 107/62
--- NOTE | 2019-08-27 00:31 | NUR ---
PT RESTING IN NO ACUTE DISTRESS. RR EVEN/UNLABORED. CALL LIGHT WITHIN REACH, BED IN LOW POSITION. WILL CONTINUE TO MONITOR.
[2019-08-27 05:15] VITALS: BP 121/72
[2019-08-27 07:24] VITALS: BP 111/58
--- NOTE | 2019-08-27 07:30 | NUR ---
PT ENDORSE TO ME THIS MORNING, LAYING IN BED AA/O X4, BREATHING EVEN AND UNLABORED CTA. MEDSURG/ DENIES ANY CP OR PRESSURE. REMIANS WITH WOUND VAC INUSE WITH SEROSANG OUTPUT NOTED TO R AND L BUTTOCKS. CARDENAS INTACT AND PATENT DRAINING YELLOW URINE NOTED. GEN WEAKNESS NOTED/ [facility]/ PER PT USES CANE AT HOME/ PHYSICAL THERAPY PENDING TODAY. MIDLINE TO ERIBERTO INTACT AND PATENT INFUSING AT 80 ML/HR OF D5 NS/ TOLERATING WELL. CALL LIGHT IN REACH. WILL CONTINUE TO MONITOR.
--- NOTE | 2019-08-27 10:11 | NUR ---
PT C/O BUTTOCKS DISCOMFORT 01/05/ MEDICATED PER EMAR. WILL CONTINUE TO MONITOR.
--- NOTE | 2019-08-27 11:59 | NUR ---
PHYSICAL THERAPY WORKING WITH PATENT. WILL CONTINUE TO MONITOR.
[2019-08-27 12:33] VITALS: BP 110/74
--- NOTE | 2019-08-27 14:57 | NUR ---
PHYSICAL THERAPY NOTE: ATTEMPTED PHYSICAL THERAPY FOLLOW UP; PATIENT REFUSED. EDUCATION PROVIDED ABOUT THE IMPROTANCE OF MOBILITY; POOR RETENTION OBSERVED
[2019-08-27 17:12] VITALS: BP 111/66
--- NOTE | 2019-08-27 17:20 | NUR ---
WOUND VAC CHANGED DUE TO BM X2/ CDI
--- NOTE | 2019-08-27 17:30 | NUR ---
DRESSING CHANGED TO R FOOT/ CDI
--- NOTE | 2019-08-27 18:23 | NUR ---
NO ACUTE CHANGES AT THIS TIME. NO ACUTE RESP DISTRESS SOB NOTED. WILL ENDORSE TO INCOMING RN.
--- NOTE | 2019-08-27 19:42 | NUR ---
RECEIVED PT FROM PREVIOUS SHIFT. PT A/OX4. DENIES PAIN. DENIES SOB ON RA. MIDLINE TO RUE PATENT, FLUSHING WELL. F/C DRAINING TO GRAVITY WITH YELLOW OUTPUT. WOUND VAC IN USE, WITH PINKISH/WHITE OUTPUT. CALL LIGHT WITHIN REACH, BED IN LOW POSITION. WILL CONTINUE TO MONITOR.
[2019-08-27 20:28] VITALS: BP 113/55
--- NOTE | 2019-08-28 01:03 | NUR ---
PT RESTING IN NO ACUTE DISTRESS. RR EVEN AND UNLABORED. CALL LIGHT WITHIN REACH, BED IN LOW POSITION. WILL CONTINUE TO MONITOR.
[2019-08-28 04:45] VITALS: BP 105/69
[2019-08-28 06:47] LABS: BASOPHIL % 0.4 % (0-2)
[2019-08-28 06:51] LABS: PLATELET COUNT 435 x10^3mcL (130-400); RED CELL DISTRIBUTION WIDTH 17.1 % (11.5-14.5)
--- NOTE | 2019-08-28 07:30 | NUR ---
PATIENT IS A&OX4, FOLLOWS COMMANDS AND COOPERATES WELL, MEDSURG PATIENT, DENIES CHEST PAIN. PERIPHERAL PULSES PALPABLE W/ TRACE EDEMA BLE. LUNG SOUNDS CTA BIALTERALLY, ON RA, O2 SAT 96%. NORMOACTIVE BSX4. CARDENAS CATHETER IS DRAINING OUT CLEAR YELLOW URINE. GENERALIZED WEAKNESS AND IS ON HILLROM AMTTRESS. REPORTS TO USE CAN AT HOME. BILATERAL BUTTOCKS WOUND W/ WOUND VAC. R FOOT DRESSING IS CDI. OPTIFOAM ON ELBOWS BILATERALLY. DENIES ANY PAIN OR DISCOMFORT AT THIS TIME. R UPPER MIDLINE SITE IS CDI. WILL CONTINUE TO MONITOR.
[2019-08-28 07:46] LABS: CALCIUM 8.6 mg/dL (8.5-10.1); CARBON DIOXIDE 28.9 mmol/L (21-32); CHLORIDE SERUM 102 mmol/L (98-107); CREATININE SERUM 0.4 mg/dL (0.6-1.0); GFR1 > 60 mL/min; GLUCOSE SERUM 84 mg/dL (74-106); POTASSIUM SERUM 3.6 mmol/L (3.5-5.1); SODIUM SERUM 137 mmol/L (136-145)
--- NOTE | 2019-08-28 12:23 | NUR ---
CONTACTED MD PERTAINING TO PATIENT'S COUGH. MD ORDERED ROBITUSSIN. ALSO SPOKE TO MD ABOUT HOW PATIENT BELIEVES THAT NORCO IS VERY STRONG FOR HER. MD STATED TO JUST GIVE TYLENOL. NO FURTHER ORDERS AT THIS TIME.
[2019-08-28 12:42] VITALS: BP 109/66
--- NOTE | 2019-08-28 16:33 | NUR ---
Assess for wound vac application, per charge nurse, prn wound vac dressing changed x2 and during assessment notice the gina- wound skin is red, from leackage of drainage and contimanation stool. Surgical wound beds are clean no ordor,All surgical wounds to posterior left and right thighs: cleans with ns,and dressing apply with Therahoney gel to fibrinous tissue, apply z-guard to gina-wound skin, cover wounds with ABD pad and secured with soft cloth surgical tape qd and prn if soiling. All above information reports to Ashkan Mitchell and he agrees with d/c wound vac. Dr. ALLEN also discussed with pt. of diverting colostomy, Pt. will think about it. Wound care instructions discussed with pt. and pt. agrees not to continue with wound vac. all risks and benifits explained, all questions answered. Pt. teaching giving the wound care shorterm goal is to prevent infection which means encourage pt to participate rehab for safe transfer from bed to bed side commode. pt. verbalizes understanding with good motivation at this time. All above information notify employment case manager Emelyn and Charge nurse.
[2019-08-28 17:42] VITALS: BP 120/70
--- NOTE | 2019-08-28 18:45 | NUR ---
PATIENT IS A&OX4, FOLLOWS COMMANDS AND COOPERATES WELL. PATIENT KEENAN ANY PAIN AT THIS TIME. ALL QUESTIONS AND CONCERNS HAVE BEEN ADDRESSED. NO FURTHER ORDERS FROM DOCTOR. WILL CONTINUE TO MONITOR.
--- NOTE | 2019-08-28 19:40 | NUR ---
REC'D PT FROM DAY NURSE. PT RESTING IN BED. AAOX4, SPEECH CLEAR, FOLLOWS COMMANDS. MED SURG, NO TELE. DENIES RESP DISTRESS OR SOB. BREATHING EVEN/UNLABORED ON RA. TRACE EDEMA BLE WITH DARK DISCOLORATION. ELEVATED WITH PILLOWS. ABD SOFT/ROUND/OBESE. DENIES ABD PAIN, TENDERNESS, OR N/V. CARDENAS DRAINING YELLOW URINE TO GRAVITY. GEN WEAKNESS. PT ABLE TO REPOSITION. HILLROM MATTRESS IN PLACE. R FOOT DRESSING CDI. DRESSING TO BUTTOCKS IN PLACE CDI. ERIBERTO MIDLINE DRESSING IN PLACE. FLUSHED AND PATENT. CALL LIGHT WITHIN REACH, BED AT LOWEST POSITION. WILL CONTINUE TO MONITOR.
--- NOTE | 2019-08-28 20:28 | NUR ---
SPOKE TO DR. DURON. MADE AWARE PT DOES NOT LIKE SIDE EFFECTS OF NORCO AND REQUESTING TO CHANGE PAIN MEDS. REC'D ORDER FOR TORADOL 30 MG IVP Q6 FOR MODERATE PAIN.
--- NOTE | 2019-08-28 21:12 | NUR ---
ROBITUSSIN GIVEN FOR COMPLAINTS OF COUGH.
[2019-08-28 21:15] VITALS: BP 119/59
--- NOTE | 2019-08-28 22:30 | NUR ---
R UPPER ARM MIDLINE DRESSING CHANGED. WOUND CARE PROVIDED. DRESSING TO R LATERAL PERIANKLE REMOVED. NOTED TWO CIRCULAR WOUNDS WITH YELLOW WOUND BED. MINIMAL PURULENT DRAINAGE. CLEANSED WITH WOUND CLEANSING SOLUTION, PATTED DRY, APPLIED THERAHONEY GEL THEN ADAPTIC AND COVERED WITH ISLAND DRESSING. SECURED WITH KERLIX ALEAH AND COVERED WITH SOCK.
--- NOTE | 2019-08-29 00:50 | NUR ---
PT RESTING IN BED WITH EYES CLOSED. LAYING ON R SIDE. NO SIGNS OF DISTRESS NOTED. BREATHING EVEN/UNLABORED ON RA. CARDENAS DRAINING YELLOW URINE TO GRAVITY. CALL LIGHT WITHIN REACH, BED AT LOWEST POSITION. WILL CONTINUE TO MONITOR.
--- NOTE | 2019-08-29 05:56 | NUR ---
PT RESTING IN BED WITH EYES CLOSED. AWAKENS WITH VERBAL STIMULI. BREATHING EVEN/UNLABORED ON RA. NO COMPLAINTS AT THIS TIME. DRESSINGS TO BUTTOCKS AND R ANKLE CDI. CARDENAS CARE PROVIDED. NO SIGNIFICANT CHANGES DURING SHIFT. CALL LIGHT WITHIN REACH, BED AT LOWEST POSITION. WILL ENDORSE TO DAY NURSE.
[2019-08-29 06:15] VITALS: BP 123/65
--- NOTE | 2019-08-29 08:09 | NUR ---
AAO TIMES 4. MED SURG PATIENT. LUNGS CTA. NO SOB. O2 SAT ON RA 96%. BS'S ACTIVE TIMES 4. OBESE. PERIPHERAL PULSES PALPABLE. TRACE EDEMA BLE. COOPERATIVE AND PLEASANT. NO C/O PAIN. ON HILL ROM BED, TURNS HER Q 2 HOURS. DRESSING TO RIGHT ANKLE CDI.
[2019-08-29 09:02] VITALS: BP 119/62
[2019-08-29 12:08] VITALS: BP 118/64
--- NOTE | 2019-08-29 16:04 | NUR ---
PHYSICAL THERAPY DAILY NOTES CO-SIGN All documentation done by the Chemist [employer] for 08/29/19 has been reviewed. I agree with the documentation. Reviewed/Co-Signed by: Dani Tran PT Documentation Done by:BARRIE GALVEZ BILINGUAL LEGAL ASSISTANT POC REVIEWED W/ BILINGUAL LEGAL ASSISTANT
[2019-08-29 16:12] VITALS: BP 114/66
--- NOTE | 2019-08-29 18:09 | NUR ---
SHE HAD A LARGE BROWN SOFT BM. WE REMOVED GAUZE SOAKED DRESSINGS FROM WOUNDS, IRRIGATED WITH NS, APPLIED VASELINE GAUZE TO WOUND, APPLIED NEW NS SOAKED GAUZE WRAPS FOLDED AND LIGHTLY PACKED INTO LEFT INNER THIGH AND AGAINST RIGHT BUTTOCK WOUND. THEN ABD PADS AND SURGICAL TAPE AFIXED DRESSINGS TO WOUNDS.
--- NOTE | 2019-08-29 18:22 | NUR ---
AAO TIMES 4. PLEASANT, COOPERATIVE. DRESSINGS TO LEFT INNER THIGH AND RIGHT BUTTOCKS CDI. CARDENAS CATH DRAINING MARIA ESTHER URINE TO BSD. NO C/O PAIN AT THIS TIME. MIDLINE IV SITE PATENT, CDI.
--- NOTE | 2019-08-29 18:24 | NUR ---
AAO TIMES 4. MED SURG PATIENT. IV SITE TO RUE, MIDLINE IV CATHETER, CDI AND PATENT. CARDENAS CATH DRAINED MARIA ESTHER URINE TO BSD. NO C/O PAIN. NO SOB. WATCHING TV ON HER COMPUTER. FAIR APPETITE.
--- NOTE | 2019-08-29 19:20 | NUR ---
REC'D PT FROM DAY NURSE. PT RESTING IN BED. AAOX4, SPEECH CLEAR, FOLLOWS COMMANDS. MED SURG, NO TELE. DENIES RESP DISTRESS OR SOB. BREATHING EVEN/UNLABORED ON RA. C/O DRY COUGH. WILL GIVE ROBITUSSIN BEFORE SLEEP PER REQUEST. TRACE EDEMA BLE. ELEVATED WITH PILLOWS. ABD SOFT/OBESE. DENIES ABD PAIN, TENDERNESS, OR N/V. CARDENAS DRAINING YELLOW URINE TO GRAVITY. GEN WEAKNESS WITH GREATER WEAKNESS TO BLE. LARGE DRESSING TO BUTTOCKS CDI. DRESSING TO R ANKLE CDI. BLE DARK DISCOLORATION. HILLROM MATTRESS/BED REPOSITIONING PT. PT ALSO ABLE TO REPOSITION SELF. R UPPER ARM MIDLINE IV FLUSHED AND PATENT. SITE WNL. CALL LIGHT WITHIN REACH, BED AT LOWEST POSITION. WILL CONTINUE TO MONITOR.
[2019-08-29 20:05] VITALS: BP 110/61
--- NOTE | 2019-08-29 22:36 | NUR ---
WOUND CARE PROVIDED. KERLIX TO R FOOT AND ISLAND DRESSING REMOVED. NOTED SMALL CIRCULAR ULCER WITH RED WOUND BED. CLEANSED WITH WOUND CLEANSER SOLUTION, PATTED DRY, APPLIED THERAHONEY GEL THEN ADAPTIC. COVERED WITH ISLAND DRESSING AND SECURED WITH KERLIX ALEAH. SOCK REAPPLIED.
--- NOTE | 2019-08-30 00:40 | NUR ---
PT RESTING IN BED WITH EYES CLOSED. SNORING QUIETLY. NO SIGNS OF DISTRESS NOTED. BREATHING EVEN/UNLABORED ON RA. CALL LIGHT WITHIN REACH, BED AT LOWEST POSITION. WILL CONTINUE TO MONITOR.
[2019-08-30 04:37] VITALS: BP 122/67
--- NOTE | 2019-08-30 05:42 | NUR ---
PT AWAKE AND RESTING IN BED. NO COMPLAINTS AT THIS TIME. BREATHING EVEN/UNLABORED ON RA. DENIES PAIN. DRESSINGS TO R FOOT AND BUTTOCKS CDI. NO SIGNIFICANT CHANGES DURING SHIFT. CALL LIGHT WITHIN REACH, BED AT LOWEST POSITION. WILL ENDORSE TO DAY NURSE.
[2019-08-30 06:31] LABS: BASOPHIL % 0.4 % (0-2)
[2019-08-30 06:45] LABS: PLATELET COUNT 465 x10^3mcL (130-400); RED CELL DISTRIBUTION WIDTH 17.1 % (11.5-14.5)
[2019-08-30 06:53] LABS: CARBON DIOXIDE 29.9 mmol/L (21-32); CHLORIDE SERUM 104 mmol/L (98-107); CREATININE SERUM 0.5 mg/dL (0.6-1.0); GFR1 > 60 mL/min; GLUCOSE SERUM 89 mg/dL (74-106); SODIUM SERUM 141 mmol/L (136-145)
--- NOTE | 2019-08-30 07:25 | NUR ---
RECEIVED PT IN BED, AWAKE AOX4, VERBALLY RESPONSIVE. NO C/O SOB/ CP. CTA ON BILATERAL LUNGS. NON TELE. WITH MIDLINE ERIBERTO FLUSHED. PT ON [facility] BED, ABLE TO REPOSITION SELF Q 2HRS. BLE NOTED WITH TRACE EDEMA. DRESSING ON BUTTOCKS AND L THIGH AND R ANKLE CDI. NO BM REPORTED AT THIS TIME. NO C/O PAIN ON WOUND. EDUCATED PT TO CALL FOR DISCOMFORT/PAIN. CALL LIGHT WITHIN REACH.
[2019-08-30 08:45] VITALS: BP 108/54
[2019-08-30 12:48] VITALS: BP 100/48
--- NOTE | 2019-08-30 13:41 | NUR ---
Follow-up Nutrition Assessment: Aliyah Salazar 256-A Dx: Dehydration and cellulitis on right buttock Labs: (08/30) H/H:10.7/32L Meds: Cepacol, Glucophage, Humulin, Lactinex, Lasix, Theragran, Toraldol, Tylenol, Vitamin C, Xarelto and zinc sulfate Diet: CCHO Garth BID with meals PO intake: (08/29) B:25% L:40% D:60% Weights: (08/13) 156kg (08/25) per previous RD note, unable to access weight on bariatric bed due to not have weighing scale Skin: decubitis ulcer on right buttock, left thigh and right ankle Edema: trace noted to BLE Last BM: 08/29 Per progress note 08/26, wound vac placed. Plan: continue wound vac therapy, d/c planning, ok to transfer to SNF. F/U with Dr. Luther in 2-3 weeks from discharge. During visit, observed pt laying in bed. Pt with no c/o GI Issues. Encouraged to eat more, especially protein for wound healing. Pt verbalized understanding. Estimated Nutritional Needs based on adjusted body weight:83kg Energy: 2490-2905kcal/day (30-35kcal/kg for wound healing) Protein: 99-116g/day (1.2-1.4g/kg for wound healing) Fluid: 2490-2905ml/day (1ml/kcal) or per MD Nutrition Diagnosis 1. Increased nutrient needs related to increased metabolic demands as evidenced by wounds and pressure ulcers (ongoing) Intervention 1. Recommend continue CCHO diet with Garth BID. 2. Recommend continue Theragram, Vitamin C and Zinc sulfate for wound healing. Monitor/Evaluate Previous goal: PO intakes to meet at least 75% of estimated needs Goal: PO intakes to meet at least 75% of estimated needs and wound healing Monitor: PO intake, Labs, GI function, Skin integrity, Weights. F/U in 3-5 days as moderate risk (2/5-7)
--- NOTE | 2019-08-30 13:41 | NUR ---
1. Recommend continue CCHO diet with Garth BID. 2. Recommend continue Theragram, Vitamin C and Zinc sulfate for wound healing.
[2019-08-30 17:46] VITALS: BP 101/35
--- NOTE | 2019-08-30 18:23 | NUR ---
NO SIGNIFICANT CHANGE IN CONDITION. DENIES ANY PAIN/ DISCOMFORT AT THIS TIME. WILL ENDORSE TO NOC SHIFT RN.
--- NOTE | 2019-08-30 20:00 | NUR ---
RECEIVED PT IN BED, RESTING. A/O X4, ABLE TO VERBALIZE NEEDS. SPEECH CLEAR. DENIES HEADACHE/DIZZINESS. RESP. EVEN AND UNLABORED. ON ROOM AIR,LUNG SOUNDS CLEAR BILAT. DENIES SOB. MED-SURG PT. ALERT AND ORIENTED. DENIES CP OR ANY DISCOMFORT AT THIS TIME. ON HILLROM BED/MATTRESS, REPOSITIONING. DRESSING TO BUTTOCK, LT ANKLE AND THIGH, DRY AND INTACT. CARDENAS CATH INTACT AND DRAINING YELLOW URINE. MIDLINE CATH TO RT UPPER ARM, INTACT AND WNL. AFEBRILE AND VITAL SIGNS STABLE. HS CARE DONE. CALL LIGHT WITHIN REACH. WILL CONTINUE TO MONITOR.
[2019-08-30 20:39] VITALS: BP 102/59
--- NOTE | 2019-08-31 01:06 | NUR ---
PT RESTING QUIETLY, WITH EYES CLOSED, APPEARS ASLEEP, EASILY AROUSABLE. RESP. EVEN AND UNLABORED. NO ACUTE DISTRESS NOTED. CALL LIGHT WITHIN REACH. WILL CONTINUE TO MONITOR.
[2019-08-31 05:19] VITALS: BP 124/76
--- NOTE | 2019-08-31 06:13 | NUR ---
SLEPT WELL DURING THE NIGHT. NO SIGNIFICANT CHANGE NOTED IN PT,S CONDITION. RESP. EVEN AND UNLABORED. NO ACUTE DISTRESS NOTED. AFEBRILE AND VITAL SIGNS STABLE. DENIES PAIN OR ANY DISCOMFORT AT THIS TIME. CARDENAS CATH INTACT AND PATENT. KEPT COMFORTABLE. NO BM NOTED . CALL LIGHT WITHIN REACH. WILL CONTINUE TO MONITOR.
--- NOTE | 2019-08-31 07:51 | NUR ---
RECEIVED AWAKE, ALERT AND ORIENTED. IN NO RESP. DISTRESS. VS WNL. NO C/O PAIN OR DISCOMFORT AT THIS TIME. CALL LIGHT WITHIN REACH. WILL CONTINUE WITH PLAN OF CARE.
[2019-08-31 09:08] VITALS: BP 103/54
--- NOTE | 2019-08-31 10:30 | NUR ---
TORADOL WAS GIVEN PRIOR TO WOUND CARE, PT REPORTED FAIR RELIEF. IN NO ACUTE DISTRESS. RESTING IN BED.CALL LIGHT WITHIN REACH.
--- NOTE | 2019-08-31 11:42 | NUR ---
WOUND CARE TO BEATRICE. BUTTOCKS DONE. SITE CLEANSED WITH NS, PATTED DRY. THERAHONEY APPLIED ANC COVERED WITH DRY 4/4 AND ABD. SECURED WELL WITH TAPE. PT TOLERATED WELL. PHOTOS TAKEN.
[2019-08-31 13:15] VITALS: BP 111/57
--- NOTE | 2019-08-31 14:50 | NUR ---
PHYSICAL THERAPY DAILY NOTES CO-SIGN All documentation done by the Bail Bond Agent for 08/31/19 has been reviewed. I agree with the documentation. Reviewed/Co-Signed by: Heather Rene PT Documentation Done by: ITALO RUIZ, MEDIA SALES REPRESENTATIVE
--- NOTE | 2019-08-31 15:40 | NUR ---
RESTING IN NO DISTREESS, DENIES PAIN AT THIS TIME.
[2019-08-31 17:36] VITALS: BP 105/52
--- NOTE | 2019-08-31 18:52 | NUR ---
PT REMAINS IN NO DISTRESS, AWAKE AND ALERT. NO CHANGES IN VS. NO C/O PAIN OR DISCOMFORT. CALL LIGHT WITHIN REACH. WILL BE ENDORSED TO INCOMING SHIFT.
--- NOTE | 2019-08-31 20:00 | NUR ---
RECEIVED PT IN BED, A/O X4, RESP. EVEN AND UNLABORED. NO ACUTE DISTRESS NOTED. AFEBRILE AND VITAL SIGNS STABLE. DENIES CP OR ANY DISCOMFORT AT THIS TIME. MID LINE CATH TO ERIBERTO, INTACT AND PATENT.DRESSINGS TO BUTTOCKS, RT ANKLE AND LT THIGH INTACT AND DRY. CARDENAS CATH INTACT AND DRAINING YELLOW COLOR URINE. TO BE TRANSFERRED TO [facility] . WILL CONTINUE TO MONITOR.
[2019-08-31 20:44] VITALS: BP 110/54
[2019-08-31] MEDS ORDERED: LAC PO (20:56)
[2019-08-31] MEDS ORDERED: METFORMIN HCL1000 MG PO (20:56)
[2019-08-31] MEDS ORDERED: MULTIVITAMIN1 SGL PO (20:58)
[2019-08-31] MEDS ORDERED: LASIX IV (20:58)
[2019-08-31] MEDS ORDERED: XARELTO20 M1 PO (20:59)
[2019-08-31] MEDS ORDERED: VITAMIN C500 M6 PO (20:59)
[2019-08-31] MEDS ORDERED: ZINC SULFATE220 M2 PO (20:59)
[2019-08-31] MEDS ORDERED: TORADOL IV (21:00)
--- NOTE | 2019-08-31 21:00 | NUR ---
DISCHARGE ORDERS RECEIVED FROM DR DURON.
[2019-08-31] MEDS ORDERED: TYLENOL ARTHRI650 MG PO (21:02)
[2019-08-31] MEDS ORDERED: ROBDML PO (21:02)
[2019-08-31] MEDS ORDERED: CEPACOL SORE TH1 LO4 PO (21:03)
--- NOTE | 2019-08-31 21:26 | NUR ---
SPOKE TO HUI AND TRANSPORT TIME SCHEDULED WITHIN AN HOUR. RASHAAD OF [employer] MADE AWARE THAT PT'S WEIGHT IS 156 KGS AND PER CASE MANAGEMENT NOTES, PT IS ON WILL CALL FOR [facility] TRANSPORTATION. PER RASHAAD, SHE WILL SET UP THE TRANSFER. PRIMARY NURSE DEBI MADE AWARE.
--- NOTE | 2019-08-31 22:00 | NUR ---
PT, AWARE OF DISCHARGE. [place] [facility] [facility] [place] . [place].
--- NOTE | 2019-08-31 22:27 | NUR ---
RE[place]GI [place] [facility] [place]B.
--- NOTE | 2019-08-31 22:30 | NUR ---
HAD X1 LG BROWNISH COLOR BM,CLEANED, DRESSING TO BUTTOCK CHANGED. AWAITING [facility] [employer] [facility]. TRANSPORT.
--- NOTE | 2019-08-31 23:28 | NUR ---
[facility]. TRANSPORT HERE TO SUPERVISOR LOADING PT. TO [facility] WITH PT,S PERSONAL BELONGINGS.
== END 2019-08-31 23:26 | disposition short-term general hospital (02) | DRG 166 ==
LOC: ED 18:35 → DU 20:37 → MU 20:37 → DU 22:36 → MU 08-14 10:30
PROVIDERS: Anesthesiology; Emergency Medicine; Surgery; ADMIT Internal Medicine
PROC: 0JB90ZZ Excision of Buttock Subcutaneous Tissue and Fascia, Open Approach (ICD-10-PCS; 2019-08-16)
PROC: 0JBQ0ZZ Excision of Right Foot Subcutaneous Tissue and Fascia, Open Approach (ICD-10-PCS; 2019-08-16)
PROC: 0JBM3ZZ Excision of Left Upper Leg Subcutaneous Tissue and Fascia, Percutaneous Approach (ICD-10-PCS; principal; 2019-08-16 14:00)
PROC: 0JB90ZZ Excision of Buttock Subcutaneous Tissue and Fascia, Open Approach (ICD-10-PCS; 2019-08-24)
DX: J69.0 Pneumonitis due to inhalation of food and vomit (principal); J96.00 Acute respiratory failure, unspecified whether with hypoxia or hypercapnia; L03.116 Cellulitis of left lower limb; N39.0 Urinary tract infection, site not specified; Z68.43 Body mass index [BMI] 50.0-59.9, adult; L03.115 Cellulitis of right lower limb; I82.411 Acute embolism and thrombosis of right femoral vein; I82.431 Acute embolism and thrombosis of right popliteal vein; L89.322 Pressure ulcer of left buttock, stage 2; L89.312 Pressure ulcer of right buttock, stage 2; L89.152 Pressure ulcer of sacral region, stage 2; I73.9 Peripheral vascular disease, unspecified; R15.9 Full incontinence of feces; E86.0 Dehydration; J44.9 Chronic obstructive pulmonary disease, unspecified; E66.01 Morbid (severe) obesity due to excess calories; Z86.718 Personal history of other venous thrombosis and embolism; E87.6 Hypokalemia; G47.33 Obstructive sleep apnea (adult) (pediatric); Z88.2 Allergy status to sulfonamides; Z79.84 Long term (current) use of oral hypoglycemic drugs; D64.9 Anemia, unspecified; I50.9 Heart failure, unspecified
CPT/HCPCS: 82962; 90658; 97110-GP; 97112-GP; 97530-GP; C1751; G0378; J1644; J1650; J1885; J1940; J2001; J2250; J2543; J3490; J7030; J7040; J7042; J7050; J7120; J7620; Q0092